=== PATIENT | male | born 1990 | race Hispanic/Latino ===

== ENCOUNTER 2017-01-27 07:58 | Emergency (ER) | payer OTHER ==
[2017-01-27 08:02] VITALS: BP 136/90; PULSE 87; TEMP 97; O2SAT 98
[2017-01-27 08:03] VITALS: BMI 29.4
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
--- NOTE | 2017-01-27 09:53 | CT ---
PROCEDURE: CT Cervical Spine without contrast HISTORY: Neck pain COMPARISON: None available. TECHNIQUE: Axial computed tomography images were obtained of the cervical spine without the use of intravenous contrast. Coronal and sagittal reformatted images were created and reviewed. Radiation dose: Total exam DLP = 475.94 mGy-cm. This CT exam was performed using one or more of the following dose reduction techniques: Automated exposure control, adjustment of the mA and/or kV according to patient size, and/or use of iterative reconstruction technique. FINDINGS: VERTEBRAE: Vertebral bodies maintained in height. Normal alignment maintained. The atlantoaxial articulation and odontoid process are intact.No fracture. Normal alignment. No destructive bony lesion. DISCS/SPINAL CANAL/NEURAL FORAMINA: No significant The intervertebral disc spaces are maintained in height. There is a midline disc herniation at C5-6. This results in central spinal stenosis at C5-6. The A-P diameter of the central canal at C5-6 is 7 mm, in the midline. There is small midline disc herniation at C6-7. There is no resulting central spinal or neural foraminal stenosis. No other disc bulge or herniation is appreciated elsewhere. PARASPINAL SOFT TISSUES: Unremarkable. OTHER FINDINGS: None. IMPRESSION: No fracture/dislocation. Midline disc herniation C5-6 and C6-7. Central spinal stenosis at C5-6.
== END 2017-01-27 10:36 | disposition home or self-care (01) ==
LOC: H.ER 07:58
DX: M25.521 Pain in right elbow (principal); M25.571 Pain in right ankle and joints of right foot; S50.311A Abrasion of right elbow, initial encounter; E11.9 Type 2 diabetes mellitus without complications; V13.4XXA Pedal cycle driver injured in collision with car, pick-up truck or van in traffic accident, initial encounter; Y93.55 Activity, bike riding

== ENCOUNTER 2017-04-25 11:16 | Inpatient (IN) | payer OTHER ==
[2017-04-25 11:18] VITALS: BMI 29.4
[2017-04-25] MEDS ORDERED: Insulin Regular 100 units/ml IVP ONE (12:16)
[2017-04-25] MEDS ORDERED: Sodium Chloride 0.9% 1,000 ML IV STA ×3 (12:16→13:54)
[2017-04-25 13:22] LABS: BASO # 0.3 K/uL (0.0-0.2); HEMOGLOBIN 17.8 g/dL (12.0-18.0); LYMPH # 1.2 K/uL (1.0-4.3); LYMPH % 3.7 % (20.0-40.0); MEAN CELL VOLUME 88.7 fl (80.0-94.0); MEAN CORPUSCULAR HGB CONC 32.8 g/dL (33.0-37.0); MEAN PLATELET VOLUME 9.3 fl (7.2-11.7); MONO # 1.6 K/uL (0.0-0.8); MONO % 4.7 % (0.0-10.0); NEUT # 30.2 K/uL (1.8-7.0); NEUT % 90.6 % (50.0-75.0); NRBC % 0.1 % (0.0-0.0); PLATELET COUNT 388 K/uL (130-400); RBC 6.12 Mil/uL (4.40-5.90); RED CELL DISTRIBUTION WIDTH 13.1 % (11.5-14.5); WHITE BLOOD COUNT 33.4 K/uL (4.8-10.8)
[2017-04-25] MEDS ORDERED: Insulin Regular 100 units/ml ONE (13:25)
[2017-04-25 13:32] LABS: SQUAMOUS EPITHIAL < 1 /hpf (0-5); URINE BILIRUBIN NEGATIVE (NEGATIVE); URINE BLOOD NEGATIVE (NEGATIVE); URINE CLARITY CLEAR (Clear); URINE COLOR YELLOW (YELLOW); URINE GLUCOSE (UA) >=500 mg/dL (Normal); URINE HYALINE CAST 0-2 /hpf (0-2); URINE LEUKOCYTE ESTERASE NEG Leu/uL (Negative); URINE NITRATE NEGATIVE (NEGATIVE); URINE PROTEIN 100 mg/dL (NEGATIVE); URINE UROBILINOGEN 0.2-1.0 mg/dL (0.2-1.0)
[2017-04-25 13:34] LABS: VENOUS BLOOD GAS BASE EXCESS -24.7 mmol/L (0.0-2.0); VENOUS BLOOD GAS PCO2 29 mmHg (40-60); VENOUS BLOOD GAS PO2 45 mm/Hg (30-55); VENOUS BLOOD PH 6.96 (7.32-7.43)
[2017-04-25] MEDS ORDERED: Dextrose 50% SYRINGE Inj (50 ml) IV PRN ×2 (13:40→18:26)
[2017-04-25] MEDS ORDERED: Glucagon Recombinant 1 mg Inj IM PRN ×2 (13:40→18:26)
--- NOTE | 2017-04-25 14:02 | ED PDOC ---
HPI: Abdomen Time Seen by Provider: 04/25/17 12:15 Chief Complaint (Nursing): High Blood Sugar Chief Complaint (Provider): Vomiting History Per: Patient History/Exam Limitations: no limitations Onset/Duration Of Symptoms: Days (x2) Current Symptoms Are (Timing): Still Present Associated Symptoms: Nausea, Vomiting Additional Complaint(s): Leno Beaver is a 26 year old male with a history of insulin-dependent diabetes mellitus (with insulin pump), who presents to the emergency department complaining of vomiting since last night, which was persisted today. Patient also developed polyuria, generalized weakness, dizziness, and headache today. States his blood sugar is usually between 250-300 at home. Patient reports his pump dispensed 8.4 units of insulin 1 hour prior to arrival. Currently complains of feeling nauseous. Denies ever being in DKA in the past. PMD: Dr. Maher Past Medical History Reviewed: Historical Data, Nursing Documentation, Vital Signs Vital Signs: Last Vital Signs Temp 97.9 F 04/29/17 08:00 Pulse 72 04/29/17 08:00 Resp 20 04/29/17 08:00 BP 125/73 04/29/17 08:00 Pulse Ox 98 04/29/17 08:00 - Medical History PMH: Anxiety, Asthma, Depression, Diabetes (insulin dependent) - Surgical History Surgical History: No Surg Hx - Family History Family History: States: Unknown Family Hx - Home Medications Home Medications: Ambulatory Orders Medication Instructions Recorded Albuterol HFA [Ventolin HFA 90 2 puff IH Q4H PRN 04/25/17 mcg/actuation (8 g)] Cetirizine HCl 20 mg PO DAILY 04/25/17 Citalopram Hydrobromide [Celexa] 20 mg PO DAILY 04/25/17 Insulin Aspart, Recombinant 1.85 - 1.9 unit SC ASDIR 04/25/17 [Novolog] Lisdexamfetamine Dimesylate 40 mg PO DAILY 04/25/17 [Vyvanse] buPROPion XL [Wellbutrin XL] 300 mg PO DAILY 04/25/17 - Allergies Allergies/Adverse Reactions: Allergies Allergy/AdvReac Type Severity Reaction Status Date / Time No Known Allergies Allergy Verified 01/27/17 08:21 Review of Systems ROS Statement: Except As Marked, All Systems Reviewed And Found Negative Constitutional: Positive for: Weakness (generalized). Negative for: Fever Gastrointestinal: Positive for: Nausea, Vomiting, Abdominal Pain (crampy). Negative for: Diarrhea Neurological: Positive for: Headache, Dizziness Physical Exam - Reviewed Nursing Documentation Reviewed: Yes Vital Signs Reviewed: Yes - Physical Exam Appears: Positive for: Uncomfortable (and dehydrated appearing) Head Exam: Positive for: ATRAUMATIC, NORMOCEPHALIC Skin: Positive for: Normal Color, Warm, Dry Eye Exam: Positive for: EOMI, Normal appearance, PERRL Neck: Positive for: Normal, Painless ROM Cardiovascular/Chest: Positive for: Regular Rate, Rhythm. Negative for: Murmur Respiratory: Positive for: Normal Breath Sounds. Negative for: Accessory Muscle Use, Respiratory Distress Gastrointestinal/Abdominal: Positive for: Soft, Other (pump located at left lower abdomen). Negative for: Tenderness Back: Positive for: Normal Inspection. Negative for: Vertebral Tenderness Extremity: Positive for: Normal ROM. Negative for: Pedal Edema, Deformity Neurologic/Psych: Positive for: Alert, Oriented - Laboratory Results Result Diagrams: 04/29/17 06:30 04/29/17 06:30 - ECG O2 Sat by Pulse Oximetry: 95 (RA) Pulse Ox Interpretation: Normal - Radiology X-Ray: Interpreted by Me, Viewed By Me X-Ray Interpretation: No Acute Disease - Critical Care Total Time (In Min): 35 Comments: pt required frequent bedside attention due to DKA while on insulin pump, requiring insulin drip and ICU care. Medical Decision Making Medical Decision Making: Time: 12:15 Initial Plan: --EKG --VBG --CMP --Troponin I --CBC w/ differential --Accucheck --Chest x-ray --Zofran 4 mg IV --IV fluids --Will discontinue pump, start patient on 4 units Insulin IVP --Urinalysis --Reevaluation Labs reviewed, revealing ketones in urine, WBC of 33, and elevated anion gap. Reviewed labs, +hyperglycemia w/ elevated AG, leukocytosis and evidence profound dehydration. Insulin drip initiated Cultures obtained and rocephin initiated for broad spectrum coverage. Unclear etiology of DKA as states insulin pump was functional. Continued to deny abdominal pain, cough, headache/neck pain or skin changes/ lesions/rash. Insulin pump site clean/no erythema. Time: 14:[address] Chapman, Sharepoint Manager on-call, and Dr. Lloyd, Medicine on-call. Patient will be admitted inpatient to intensive care for DKA Scribe Attestation: Documented by Anika Boateng, acting as a scribe for Giuliano Jimenez III, DO Provider Scribe Attestation: All medical record entries made by the Scribe were at my direction and personally dictated by me. I have reviewed the chart and agree that the record accurately reflects my personal performance of the history, physical exam, medical decision making, and the department course for this patient. I have also personally directed, reviewed, and agree with the discharge instructions and disposition Disposition - Clinical Impression Clinical Impression: DKA (diabetic ketoacidoses) - Patient ED Disposition Is Patient to be Admitted: Yes Discussed With DrStevenson: Srinath Lloyd Doctor Will See Patient In The: Hospital Counseled Patient/Family Regarding: Studies Performed - Disposition Disposition Time: 14:00 Condition: STABLE - Pt Status Changed To: Hospital Disposition Of: Inpatient - Admit Certification Admit to Inpatient:: After my assessment, the patient will require hospitalization for at least two midnights. This is because of the severity of symptoms shown, intensity of services needed, and/or the medical risk in this patient being treated as an outpatient. - POA Present On Arrival: Poor Glycemic Control
[2017-04-25 14:05] LABS: ALB/GLOB RATIO 1.4 (1.0-2.1); ALBUMIN 5.5 g/dL (3.5-5.0); ALT/SGPT 44 U/L (21-72); AST/SGOT 41 U/L (17-59); BLOOD UREA NITROGEN 24 mg/dl (9-20); GFR AFRICAN-AMERICAN > 60; GFR NON-AFRICAN AMERICAN > 60
--- NOTE | 2017-04-25 14:32 | RAD ---
HISTORY: Weakness. COMPARISON: 01/27/2017 FINDINGS: LUNGS: No active pulmonary disease. PLEURA: No significant pleural effusion identified, no pneumothorax apparent. CARDIOVASCULAR: Normal. OSSEOUS STRUCTURES: No significant abnormalities. VISUALIZED UPPER ABDOMEN: Normal. OTHER FINDINGS: None. IMPRESSION: No active disease. No significant interval change compared to the prior examination(s).
--- NOTE | 2017-04-25 14:57 | CP.CCUPN ---
CCU Subjective - Physician Review Subjective (Free Text): 04/25/17 18:19 The patient was Seen/interviewed and examined by me at the bedside during ICU round, Medical records reviewed and Management issues were discussed and formulated with the house staff. Events reviewed 26 Years old Male with PMHx of Anxiety, Asthma, Depression and insulin dependent Diabetes (on insulin pump) Who presented to the Emergency department with complaint of persisted nausea and vomiting since last night. Patient also developed polyuria, generalized weakness, dizziness, and headache today. In the ER he was found to be in DKA, BG of 334, elevated Lactate/Anion kalyani, Bicard <5, Pt States the he never being in DKA in the past. Pt States his blood sugar is usually between 250-300 at home. Labs revealed Leucocytosis, and in light of DKA and elevated Lactate, Blood C/S sent and he was started on IV Ceftriaxone CCU Objective - Vital Signs / Intake & Output Vital Signs (Last 4 hours): Vital Signs Temp Pulse Resp BP Pulse Ox 04/25/17 14:12 95 04/25/17 11:35 98.2 F 102 H 18 143/83 95 Intake and Output (Last 8hrs): Intake & Output 04/24/17 04/25/17 04/25/17 22:59 06:59 14:59 Weight 205 lb - Physical Exam Head: Positive for: Atraumatic, Normocephalic. Negative for: Tenderness, Contusion Pupils: Positive for: PERRL. Negative for: Sluggish, Non-Reactive Extroacular Muscles: Positive for: EOMI. Negative for: Gaze Palsy Conjunctiva: Positive for: Normal. Negative for: Injected, Icteric Ears: Positive for: Normal Mouth: Positive for: Moist Mucous Membranes Nose (Internal): Positive for: Normal Inspection Neck: Positive for: Normal Range of Motion, Trachea Midline. Negative for: Meningeal Signs, MIDLINE TENDERNESS, Paraspinal Tenderness, JVD, Lymphadenopathy , Bruit, Other Respiratory/Chest: Positive for: Clear to Auscultation, Good Air Exchange. Negative for: Respiratory Distress, Accessory Muscle Use, Wheezes, Decreased Breath Sounds, Rales, Retracting, Rhonchi Cardiovascular: Positive for: Regular Rate and Rhythm, Normal S1, S2, Peripheal Pulses Present, Tachycardic. Negative for: Murmurs, Irregular Rhythm, Gallop Abdomen: Positive for: Normal Bowel Sounds. Negative for: Tenderness, Distention, Peritoneal Signs, Rebound, Guarding Upper Extremity: Positive for: Normal Inspection, NORMAL PULSES, Capillary Refill < 2s. Negative for: Cyanosis, Edema Lower Extremity: Positive for: Normal Inspection, NORMAL PULSES, Capillary Refill < 2 s. Negative for: Edema, CALF TENDERNESS Neurological: Positive for: GCS=15, CN II-XII Intact, Speech Normal, Motor Func Grossly Intact, Normal Sensory Function Psychiatric: Positive for: Alert, Oriented x 3, Normal Insight, Normal Concentration - Medications Active Medications: Active Medications Generic Name Dose Route Start Last Admin Trade Name Freq PRN Reason Stop Dose Admin Dextrose 0 ml 04/25/17 13:40 Dextrose 50% Inj IV STAT PRN Hypoglycemia Protocol Protocol Dextrose 0 gm 04/25/17 13:40 Glutose 15 PO ONCE PRN Hypoglycemia Protocol Protocol Glucagon 0 mg 04/25/17 13:40 Glucagen Diagnostic Kit IM STAT PRN Hypoglycemia Protocol Protocol Insulin Human Regular 100 101 mls @ 6.06 mls/hr 04/25/17 13:45 units/ Sodium Chloride IV .[id number] AVELINA Protocol 6 UNITS/HR Sodium Chloride 1,000 mls @ 250 mls/hr 04/25/17 13:54 Sodium Chloride 0.9% IV 04/25/17 17:53 .Q4H STA - Patient Studies Lab Studies: Lab Studies 04/25/17 04/25/17 04/25/17 Range/Units 14:04 13:22 13:15 WBC (4.8-10.8) K/uL RBC (4.40-5.90) Mil/uL Hgb (12.0-18.0) g/dL Hct (35.0-51.0) % MCV (80.0-94.0) fl MCH (27.0-31.0) pg MCHC (33.0-37.0) g/dL RDW (11.5-14.5) % Plt Count (130-400) K/uL MPV (7.2-11.7) fl Neut % (Auto) (50.0-75.0) % Lymph % (Auto) (20.0-40.0) % [place] % (Auto) (0.0-10.0) % Eos % (Auto) (0.0-4.0) % Baso % (Auto) (0.0-2.0) % Neut # (1.8-7.0) K/uL Lymph # (1.0-4.3) K/uL [place] # (0.0-0.8) K/uL Eos # (0.0-0.7) K/uL Baso # (0.0-0.2) K/uL pO2 45 (30-55) mm/Hg VBG pH 6.96 L* (7.32-7.43) VBG pCO2 29 L (40-60) mmHg VBG HCO3 4.9 mmol/L VBG Total CO2 7.4 L (22-28) mmol/L VBG O2 Sat (Calc) 81.1 H (40-65) % VBG Base Excess -24.7 L (0.0-2.0) mmol/L VBG Potassium 6.2 H* (3.6-5.2) mmol/L A-a O2 Difference 68.0 mm/Hg Glucose 356 H (75-110) mg/dL Lactate 3.5 H (0.7-2.1) mmol/L FiO2 21.0 % Crit Value Called To Dr cliff pretty Crit Value Called By 15 Crit Value Read Back Y Blood Gas Notified Time 1333 Sodium 135.0 (132-148) mmol/l Potassium (3.6-5.0) MMOL/L Chloride 97.0 L (98-107) mmol/L Carbon Dioxide (22-30) mmol/L Anion Gap (10-20) BUN (9-20) mg/dl Creatinine (0.8-1.5) mg/dl Est GFR ( Amer) Est GFR (Non-Af Amer) POC Glucose (mg/dL) 247 H (65-110) mg/dL Random Glucose (75-110) mg/dL Calcium (8.4-10.2) mg/dL Total Bilirubin (0.2-1.3) mg/dl AST (17-59) U/L ALT (21-72) U/L Alkaline Phosphatase (38-126) U/L Troponin I (0.00-0.120) ng/mL Total Protein (6.3-8.2) G/DL Albumin (3.5-5.0) g/dL Globulin (2.2-3.9) gm/dL Albumin/Globulin Ratio (1.0-2.1) Venous Blood Potassium 6.2 H* (3.6-5.2) mmol/L Urine Color Yellow (YELLOW) Urine Clarity Clear (Clear) Urine pH 5.0 (5.0-8.0) Ur Specific [place] 1.023 (1.003-1.030) Urine Protein 100 (NEGATIVE) mg/dL Urine Glucose (UA) >=500 (Normal) mg/dL Urine Ketones 80 (NEGATIVE) mg/dL Urine Blood Negative (NEGATIVE) Urine Nitrate Negative (NEGATIVE) Urine Bilirubin Negative (NEGATIVE) Urine Urobilinogen 0.2-1.0 (0.2-1.0) mg/dL Ur Leukocyte Esterase Neg (Negative) Ray/uL Urine RBC (Auto) 3 (0-3) /hpf Urine Microscopic WBC < 1 (0-5) /hpf Ur Squamous Epith Cells < 1 (0-5) /hpf Hyaline Casts 0-2 (0-2) /hpf 04/25/17 04/25/17 Range/Units 13:10 13:10 WBC 33.4 H (4.8-10.8) K/uL RBC 6.12 H (4.40-5.90) Mil/uL Hgb 17.8 (12.0-18.0) g/dL Hct 54.2 H (35.0-51.0) % MCV 88.7 (80.0-94.0) fl MCH 29.0 (27.0-31.0) pg MCHC 32.8 L (33.0-37.0) g/dL RDW 13.1 (11.5-14.5) % Plt Count 388 (130-400) K/uL MPV 9.3 (7.2-11.7) fl Neut % (Auto) 90.6 H (50.0-75.0) % Lymph % (Auto) 3.7 L (20.0-40.0) % [place] % (Auto) 4.7 (0.0-10.0) % Eos % (Auto) 0.0 (0.0-4.0) % Baso % (Auto) 1.0 (0.0-2.0) % Neut # 30.2 H (1.8-7.0) K/uL Lymph # 1.2 (1.0-4.3) K/uL [place] # 1.6 H (0.0-0.8) K/uL Eos # 0.0 (0.0-0.7) K/uL Baso # 0.3 H (0.0-0.2) K/uL pO2 (30-55) mm/Hg VBG pH (7.32-7.43) VBG pCO2 (40-60) mmHg VBG HCO3 mmol/L VBG Total CO2 (22-28) mmol/L VBG O2 Sat (Calc) (40-65) % VBG Base Excess (0.0-2.0) mmol/L VBG Potassium (3.6-5.2) mmol/L A-a O2 Difference mm/Hg Glucose (75-110) mg/dL Lactate (0.7-2.1) mmol/L FiO2 % Crit Value Called To Crit Value Called By Crit Value Read Back Blood Gas Notified Time Sodium 139 (132-148) mmol/l Potassium 6.3 H* (3.6-5.0) MMOL/L Chloride 102 (98-107) mmol/L Carbon Dioxide < 5 L* (22-30) mmol/L Anion Gap 38 H (10-20) BUN 24 H (9-20) mg/dl Creatinine 1.2 (0.8-1.5) mg/dl Est GFR ( Amer) > 60 Est GFR (Non-Af Amer) > 60 POC Glucose (mg/dL) (65-110) mg/dL Random Glucose 334 H (75-110) mg/dL Calcium 10.0 (8.4-10.2) mg/dL Total Bilirubin 1.0 (0.2-1.3) mg/dl AST 41 (17-59) U/L ALT 44 (21-72) U/L Alkaline Phosphatase 192 H (38-126) U/L Troponin I 0.0180 (0.00-0.120) ng/mL Total Protein 9.4 H (6.3-8.2) G/DL Albumin 5.5 H (3.5-5.0) g/dL Globulin 3.8 (2.2-3.9) gm/dL Albumin/Globulin Ratio 1.4 (1.0-2.1) Venous Blood Potassium (3.6-5.2) mmol/L Urine Color (YELLOW) Urine Clarity (Clear) Urine pH (5.0-8.0) Ur Specific [place] (1.003-1.030) Urine Protein (NEGATIVE) mg/dL Urine Glucose (UA) (Normal) mg/dL Urine Ketones (NEGATIVE) mg/dL Urine Blood (NEGATIVE) Urine Nitrate (NEGATIVE) Urine Bilirubin (NEGATIVE) Urine Urobilinogen (0.2-1.0) mg/dL Ur Leukocyte Esterase (Negative) Ray/uL Urine RBC (Auto) (0-3) /hpf Urine Microscopic WBC (0-5) /hpf Ur Squamous Epith Cells (0-5) /hpf Hyaline Casts (0-2) /hpf Laboratory Results - last 24 hr 04/25/17 04/25/17 04/25/17 13:10 13:10 13:15 WBC 33.4 H RBC 6.12 H Hgb 17.8 Hct 54.2 H MCV 88.7 MCH 29.0 MCHC 32.8 L RDW 13.1 Plt Count 388 MPV 9.3 Neut % (Auto) 90.6 H Lymph % (Auto) 3.7 L [place] % (Auto) 4.7 Eos % (Auto) 0.0 Baso % (Auto) 1.0 Neut # 30.2 H Lymph # 1.2 [place] # 1.6 H Eos # 0.0 Baso # 0.3 H pO2 VBG pH VBG pCO2 VBG HCO3 VBG Total CO2 VBG O2 Sat (Calc) VBG Base Excess VBG Potassium A-a O2 Difference Glucose Lactate FiO2 Crit Value Called To Crit Value Called By Crit Value Read Back Blood Gas Notified Time Sodium 139 Potassium 6.3 H* Chloride 102 Carbon Dioxide < 5 L* Anion Gap 38 H BUN 24 H Creatinine 1.2 Est GFR ( Amer) > 60 Est GFR (Non-Af Amer) > 60 POC Glucose (mg/dL) Random Glucose 334 H Calcium 10.0 Total Bilirubin 1.0 AST 41 ALT 44 Alkaline Phosphatase 192 H Troponin I 0.0180 Total Protein 9.4 H Albumin 5.5 H Globulin 3.8 Albumin/Globulin Ratio 1.4 Venous Blood Potassium Urine Color Yellow Urine Clarity Clear Urine pH 5.0 Ur Specific [place] 1.023 Urine Protein 100 Urine Glucose (UA) >=500 Urine Ketones 80 Urine Blood Negative Urine Nitrate Negative Urine Bilirubin Negative Urine Urobilinogen 0.2-1.0 Ur Leukocyte Esterase Neg Urine RBC (Auto) 3 Urine Microscopic WBC < 1 Ur Squamous Epith Cells < 1 Hyaline Casts 0-2 04/25/17 04/25/17 13:22 14:04 WBC RBC Hgb Hct MCV MCH MCHC RDW Plt Count MPV Neut % (Auto) Lymph % (Auto) [place] % (Auto) Eos % (Auto) Baso % (Auto) Neut # Lymph # [place] # Eos # Baso # pO2 45 VBG pH 6.96 L* VBG pCO2 29 L VBG HCO3 4.9 VBG Total CO2 7.4 L VBG O2 Sat (Calc) 81.1 H VBG Base Excess -24.7 L VBG Potassium 6.2 H* A-a O2 Difference 68.0 Glucose 356 H Lactate 3.5 H FiO2 21.0 Crit Value Called To Dr cliff pretty Crit Value Called By 15 Crit Value Read Back Y Blood Gas Notified Time 1333 Sodium 135.0 Potassium Chloride 97.0 L Carbon Dioxide Anion Gap BUN Creatinine Est GFR ( Amer) Est GFR (Non-Af Amer) POC Glucose (mg/dL) 247 H Random Glucose Calcium Total Bilirubin AST ALT Alkaline Phosphatase Troponin I Total Protein Albumin Globulin Albumin/Globulin Ratio Venous Blood Potassium 6.2 H* Urine Color Urine Clarity Urine pH Ur Specific [place] Urine Protein Urine Glucose (UA) Urine Ketones Urine Blood Urine Nitrate Urine Bilirubin Urine Urobilinogen Ur Leukocyte Esterase Urine RBC (Auto) Urine Microscopic WBC Ur Squamous Epith Cells Hyaline Casts EKG/Cardiology Studies: Cardiology / EKG Studies 04/25/17 12:16 ELECTROCARDIOGRAM Stat Comment: Mode Of Transportation: Reason For Exam: vomit Fingerstick Blood Sugar Results: 247 Review of Systems - Cardiovascular Cardiovascular: absent: As Per HPI, Acrocyanosis, Chest Pain, Chest Pain at Rest , Chest Pain with Activity, Claudication, Diaphoresis, Dyspnea, Dyspnea on Exertion, Edema, Irregular Heart Rhythm, Pain Radiating to Arm/Neck/Jaw, Leg Edema, Leg Ulcers, Lightheadedness, Orthopnea, Palpitations, Paroxysmal Nocturnal Dyspnea, Pedal Edema, Radiating Pain, Rapid Heart Rate, Slow Heart Rate, Syncope, Other, UNREMARKABLE - Respiratory Respiratory: absent: As Per HPI, Cough, Dyspnea, Hemoptysis, Dyspnea on Exertion , Wheezing, Snoring, Stridor, Pain on Inspiration, Chest Congestion, Excessive Mucous Production, Change in Mucous Color, Pain with Coughing, Other, UNREMARKABLE - Gastrointestinal Gastrointestinal: Abdominal Pain, Heartburn, Nausea, Vomiting. absent: Coffee Ground Emesis, Hematochezia, Melena Critical Care Progress Note - Extremities/Vascular Does the Patient have a Central Venous Catheter?: No Does the Patient need a Central Venous Catheter?: No Does the Patient have a Green Catheter?: No Does the Patient need a Green Catheter?: No Assessment/Plan (1) DKA (diabetic ketoacidoses) Current Visit: Yes Status: Acute (2) DKA, type 1 Current Visit: Yes Status: Acute (3) Elevated lactic acid level Current Visit: Yes Status: Acute (4) Dehydration Current Visit: Yes Status: Acute - Assessment and Plan (Free Text) Assessment: Assessment & Recommendations: DKA, hyperglycemic Dehydration, hypovolemia R/O Sepsis, Less likely participated by infection, pt afebrile. High AG metabolic acidosis Hyperkalemia Admitted to ICU for hemodynamic and Respiratory monitoring, He has an AG of 38 Aggressive IV fluid replacement with Isotonic saline S/P 1L 0.9% NS in ER Will change to D5NS or D51/2 NS when BG < 250 mg /dL Cont. insulin drip at 3U /U till AG closed [place] check Q 1H while on insulin Basic metabolic panel and VBG Q 4H Will replete if K < 3.2 (will add 20-30 mEq to each liter of fluid) Repeate Labs including BMP, Ca, Po4, Mg, ABG/VBG Check urine tox Restart Home medications No indications for sodium bicarbonate therapy Monitor renal function and urine output GI/DVT PPX FULL CODE
[2017-04-25 15:48] LABS: BANDS 1 % (0-2); EOSINOPHIL 1 % (0-7); LYMPHOCYTE 2 % (20-50); MONOCYTE 5 % (0-10); NEUTROPHIL 91 % (42-75); PLATELET ESTIMATE NORMAL (NORMAL); TOTAL CELLS COUNTED 100
--- NOTE | 2017-04-25 18:22 | CARD ---
APPROVED REPORT EKG Measurement Heart [id number] <Conclusion> Normal sinus rhythm Normal ECG
[2017-04-25 20:03] LABS: VENOUS BLOOD GAS BASE EXCESS -23.6 mmol/L (0.0-2.0); VENOUS BLOOD GAS PCO2 20 mmHg (40-60); VENOUS BLOOD GAS PO2 46 mm/Hg (30-55); VENOUS BLOOD PH 7.04 (7.32-7.43)
[2017-04-25 20:40] LABS: ALB/GLOB RATIO 1.3 (1.0-2.1); ALBUMIN 4.7 g/dL (3.5-5.0); ALT/SGPT 44 U/L (21-72); AST/SGOT 25 U/L (17-59); BLOOD UREA NITROGEN 19 mg/dl (9-20); CALCIUM 9.1 mg/dL (8.4-10.2); GFR AFRICAN-AMERICAN > 60; GFR NON-AFRICAN AMERICAN > 60; MAGNESIUM 2.3 MG/DL (1.6-2.3)
[2017-04-25] MEDS: Dextrose 5%/0.9% NS 1,000 ML IV SCH (21:25)
[2017-04-26 02:43] LABS: BARBITURATES, UR NEGATIVE (NEGATIVE); BENZODIAZEPINES, UR NEGATIVE (NEGATIVE); OPIATES, UR NEGATIVE (NEGATIVE); PHENCYCLIDINE, UR NEGATIVE (NEGATIVE)
[2017-04-26] MEDS: Dextrose 5%/0.9% NS 1,000 ML IV SCH (03:25)
[2017-04-26 05:57] LABS: BASO % 0.1 % (0.0-2.0); HEMOGLOBIN 15.8 g/dL (12.0-18.0); LYMPH # 1.8 K/uL (1.0-4.3); LYMPH % 6.9 % (20.0-40.0); MEAN CELL VOLUME 88.6 fl (80.0-94.0); MEAN CORPUSCULAR HEMOGLOBIN 29.1 pg (27.0-31.0); MEAN CORPUSCULAR HGB CONC 32.9 g/dL (33.0-37.0); MEAN PLATELET VOLUME 8.9 fl (7.2-11.7); MONO # 2.1 K/uL (0.0-0.8); MONO % 7.9 % (0.0-10.0); NEUT # 22.5 K/uL (1.8-7.0); NEUT % 85.1 % (50.0-75.0); RBC 5.41 Mil/uL (4.40-5.90); RED CELL DISTRIBUTION WIDTH 13.2 % (11.5-14.5); WHITE BLOOD COUNT 26.4 K/uL (4.8-10.8)
[2017-04-26 06:24] LABS: ALB/GLOB RATIO 1.4 (1.0-2.1); ALBUMIN 4.5 g/dL (3.5-5.0); ALT/SGPT 36 U/L (21-72); AST/SGOT 19 U/L (17-59); BLOOD UREA NITROGEN 14 mg/dl (9-20); CALCIUM 8.9 mg/dL (8.4-10.2); GFR AFRICAN-AMERICAN > 60; GFR NON-AFRICAN AMERICAN > 60
[2017-04-26 06:52] LABS: VENOUS BLOOD GAS BASE EXCESS -19.5 mmol/L (0.0-2.0); VENOUS BLOOD GAS PCO2 23 mmHg (40-60); VENOUS BLOOD GAS PO2 50 mm/Hg (30-55); VENOUS BLOOD PH 7.14 (7.32-7.43)
[2017-04-26] MEDS ORDERED: Pneumococcal 23-Valent Vaccine IM ONE (07:28)
[2017-04-26 13:25] LABS: VENOUS BLOOD GAS PCO2 24 mmHg (40-60); VENOUS BLOOD GAS PO2 54 mm/Hg (30-55); VENOUS BLOOD PH 7.27 (7.32-7.43)
[2017-04-26 13:36] LABS: BLOOD UREA NITROGEN 12 mg/dl (9-20); CALCIUM 8.6 mg/dL (8.4-10.2); GFR AFRICAN-AMERICAN > 60; GFR NON-AFRICAN AMERICAN > 60; MAGNESIUM 2.2 MG/DL (1.6-2.3)
--- NOTE | 2017-04-26 16:06 | CP.CCUPN ---
CCU Subjective - Physician Review Subjective (Free Text): 04/26/17 15:55 The patient was Seen/interviewed and examined by me at the bedside during ICU round, Medical records reviewed and Management issues were discussed and formulated with the house staff. Events reviewed 26 Years old Male with PMHx of Anxiety, Asthma, Depression and insulin dependent Diabetes (on insulin pump) Who presented to the Emergency department yesterday with complaint of persisted ABD pain, nausea and vomiting Patient also developed polyuria, generalized weakness, dizziness, and headache In the ER he was found to be in DKA, BG of 334, elevated Lactate/Anion kalyani, Bicard <5, Pt States the he never being in DKA in the past and his blood sugar is usually between 250-300 at home. Labs revealed Leucocytosis, and in light of DKA and elevated Lactate, Blood C/S sent and he was started on IV Ceftriaxone Patient received 2L 0.9% NS in ER, started to the ICU for further management of DKA This morning he feels well and is hemodynamically stable No Vasopressors Remains on Insulin drip for DKA at 2 units/H Also on D5 1/2 NS at 150 ml/H Pt comfortable, NAD Pt AAO x3. Denies any chest pain, SOB or Palpitations Afebrile, NSR on the monitor Last 24H I&O 1650/2100 This morning labs revealed Leucocytosis trending down 33->26, Still in DKA, elevated Lactate/Anion kalyani, Bicard <5, K/Po4/Mg normal and stable renal function CCU Objective - Vital Signs / Intake & Output Vital Signs (Last 4 hours): Vital Signs Temp Pulse Resp BP Pulse Ox 04/26/17 13:00 93 H 16 124/77 100 04/26/17 12:00 99.1 F 103 H 20 120/65 100 Intake and Output (Last 8hrs): Intake & Output 04/26/17 04/26/17 04/26/17 06:59 14:59 22:59 Intake Total 1236 1645 Output Total 1900 2100 Balance -664 -455 Intake: IV 1236 1186 Intake, Piggyback 9 Oral 450 Output: Urine 1900 2100 Urine, Voided 1900 2100 - Physical Exam Head: Positive for: Atraumatic, Normocephalic. Negative for: Tenderness, Contusion Pupils: Positive for: PERRL. Negative for: Sluggish, Non-Reactive Extroacular Muscles: Positive for: EOMI. Negative for: Gaze Palsy Conjunctiva: Positive for: Normal. Negative for: Injected, Icteric Ears: Positive for: Normal Mouth: Positive for: Moist Mucous Membranes Nose (Internal): Positive for: Normal Inspection Neck: Positive for: Normal Range of Motion, Trachea Midline. Negative for: Meningeal Signs, MIDLINE TENDERNESS, Paraspinal Tenderness, JVD, Lymphadenopathy , Bruit, Other Respiratory/Chest: Positive for: Clear to Auscultation, Good Air Exchange. Negative for: Respiratory Distress, Accessory Muscle Use, Wheezes, Decreased Breath Sounds, Rales, Retracting, Rhonchi Cardiovascular: Positive for: Regular Rate and Rhythm, Normal S1, S2, Peripheal Pulses Present, Tachycardic. Negative for: Murmurs, Irregular Rhythm, Gallop Abdomen: Positive for: Normal Bowel Sounds. Negative for: Tenderness, Distention, Peritoneal Signs, Rebound, Guarding Upper Extremity: Positive for: Normal Inspection, NORMAL PULSES, Capillary Refill < 2s. Negative for: Cyanosis, Edema Lower Extremity: Positive for: Normal Inspection, NORMAL PULSES, Capillary Refill < 2 s. Negative for: Edema, CALF TENDERNESS Neurological: Positive for: GCS=15, CN II-XII Intact, Speech Normal, Motor Func Grossly Intact, Normal Sensory Function Psychiatric: Positive for: Alert, Oriented x 3, Normal Insight, Normal Concentration - Medications Active Medications: Active Medications Generic Name Dose Route Start Last Admin Trade Name Freq PRN Reason Stop Dose Admin Acetaminophen 650 mg 04/25/17 20:15 04/25/17 21:21 Tylenol 325mg Tab PO 650 mg Q6 PRN Administration Other Dextrose 0 ml 04/25/17 13:40 Dextrose 50% Inj IV STAT PRN Hypoglycemia Protocol Protocol Dextrose 0 gm 04/25/17 13:40 Glutose 15 PO ONCE PRN Hypoglycemia Protocol Protocol Dextrose 0 ml 04/25/17 18:26 Dextrose 50% Inj IV STAT PRN Hypoglycemia Protocol Protocol Dextrose 0 gm 04/25/17 18:26 Glutose 15 PO ONCE PRN Hypoglycemia Protocol Protocol Glucagon 0 mg 04/25/17 13:40 Glucagen Diagnostic Kit IM STAT PRN Hypoglycemia Protocol Protocol Glucagon 0 mg 04/25/17 18:26 Glucagen Diagnostic Kit IM STAT PRN Hypoglycemia Protocol Protocol Insulin Human Regular 100 101 mls @ 6.06 mls/hr 04/25/17 13:45 04/26/17 13:15 units/ Sodium Chloride IV 3 units/hr .[id number] AVELINA 3.03 mls/hr Protocol Titration 6 UNITS/HR Dextrose/Sodium Chloride 1,000 mls @ 150 mls/hr 04/26/17 10:30 04/26/17 10:30 Dextrose 5%-0.9% Ns 500 Ml IV 04/26/17 20:14 150 mls/hr .[id number] AVELINA Administration Ondansetron HCl 4 mg 04/25/17 19:09 Zofran Inj IVP Q4 PRN Nausea/Vomiting Tramadol HCl 50 mg 04/25/17 20:17 Ultram PO Q6 PRN Pain, severe (8-10) - Patient Studies Lab Studies: Microbiology Studies 04/25/17 15:26 Blood Culture - Preliminary Blood-Venous NO GROWTH AFTER 24 HOURS Lab Studies 04/26/17 04/26/17 04/26/17 Range/Units 15:22 14:17 13:45 WBC (4.8-10.8) K/uL RBC (4.40-5.90) Mil/uL Hgb (12.0-18.0) g/dL Hct (35.0-51.0) % MCV (80.0-94.0) fl MCH (27.0-31.0) pg MCHC (33.0-37.0) g/dL RDW (11.5-14.5) % Plt Count (130-400) K/uL MPV (7.2-11.7) fl Neut % (Auto) (50.0-75.0) % Lymph % (Auto) (20.0-40.0) % [place] % (Auto) (0.0-10.0) % Eos % (Auto) (0.0-4.0) % Baso % (Auto) (0.0-2.0) % Neut # (1.8-7.0) K/uL Lymph # (1.0-4.3) K/uL [place] # (0.0-0.8) K/uL Eos # (0.0-0.7) K/uL Baso # (0.0-0.2) K/uL pO2 (30-55) mm/Hg VBG pH (7.32-7.43) VBG pCO2 (40-60) mmHg VBG HCO3 mmol/L VBG Total CO2 (22-28) mmol/L VBG O2 Sat (Calc) (40-65) % VBG Base Excess (0.0-2.0) mmol/L VBG Potassium (3.6-5.2) mmol/L Glucose (75-110) mg/dL Lactate (0.7-2.1) mmol/L FiO2 % Blood Gas Comments Crit Value Called To Crit Value Read Back Blood Gas Notified Time Sodium (132-148) mmol/l Potassium (3.6-5.0) MMOL/L Chloride (98-107) mmol/L Carbon Dioxide (22-30) mmol/L Anion Gap (10-20) BUN (9-20) mg/dl Creatinine (0.8-1.5) mg/dl Est GFR ( Amer) Est GFR (Non-Af Amer) POC Glucose (mg/dL) 191 H 207 H 214 H (65-110) mg/dL Random Glucose (75-110) mg/dL Calcium (8.4-10.2) mg/dL Phosphorus (2.5-4.5) mg/dl Magnesium (1.6-2.3) MG/DL Total Bilirubin (0.2-1.3) mg/dl AST (17-59) U/L ALT (21-72) U/L Alkaline Phosphatase (38-126) U/L Total Protein (6.3-8.2) G/DL Albumin (3.5-5.0) g/dL Globulin (2.2-3.9) gm/dL Albumin/Globulin Ratio (1.0-2.1) Venous Blood Potassium (3.6-5.2) mmol/L Urine Opiates Screen (NEGATIVE) Urine Methadone Screen (NEGATIVE) Ur Barbiturates Screen (NEGATIVE) Ur Phencyclidine Scrn (NEGATIVE) Ur Amphetamines Screen (NEGATIVE) U Benzodiazepines Scrn (NEGATIVE) U Oth Cocaine Metabols (NEGATIVE) U Cannabinoids Screen (NEGATIVE) Influenza Typ A,B (EIA) (NEGATIVE) 04/26/17 04/26/17 04/26/17 Range/Units 13:12 13:12 12:30 WBC (4.8-10.8) K/uL RBC (4.40-5.90) Mil/uL Hgb (12.0-18.0) g/dL Hct (35.0-51.0) % MCV (80.0-94.0) fl MCH (27.0-31.0) pg MCHC (33.0-37.0) g/dL RDW (11.5-14.5) % Plt Count (130-400) K/uL MPV (7.2-11.7) fl Neut % (Auto) (50.0-75.0) % Lymph % (Auto) (20.0-40.0) % [place] % (Auto) (0.0-10.0) % Eos % (Auto) (0.0-4.0) % Baso % (Auto) (0.0-2.0) % Neut # (1.8-7.0) K/uL Lymph # (1.0-4.3) K/uL [place] # (0.0-0.8) K/uL Eos # (0.0-0.7) K/uL Baso # (0.0-0.2) K/uL pO2 54 (30-55) mm/Hg VBG pH 7.27 L (7.32-7.43) VBG pCO2 24 L (40-60) mmHg VBG HCO3 13.6 mmol/L VBG Total CO2 11.7 L (22-28) mmol/L VBG O2 Sat (Calc) 94.3 H (40-65) % VBG Base Excess -14.0 L (0.0-2.0) mmol/L VBG Potassium 4.5 (3.6-5.2) mmol/L Glucose 243 H (75-110) mg/dL Lactate 1.1 (0.7-2.1) mmol/L FiO2 21.0 % Blood Gas Comments Crit Value Called To Crit Value Read Back Blood Gas Notified Time Sodium 131.0 L 133 (132-148) mmol/l Potassium 4.1 (3.6-5.0) MMOL/L Chloride 100.0 106 (98-107) mmol/L Carbon Dioxide 10 L* D (22-30) mmol/L Anion Gap 21 H (10-20) BUN 12 (9-20) mg/dl Creatinine 0.8 (0.8-1.5) mg/dl Est GFR ( Amer) > 60 Est GFR (Non-Af Amer) > 60 POC Glucose (mg/dL) 216 H (65-110) mg/dL Random Glucose 233 H (75-110) mg/dL Calcium 8.6 (8.4-10.2) mg/dL Phosphorus 2.8 (2.5-4.5) mg/dl Magnesium 2.2 (1.6-2.3) MG/DL Total Bilirubin (0.2-1.3) mg/dl AST (17-59) U/L ALT (21-72) U/L Alkaline Phosphatase (38-126) U/L Total Protein (6.3-8.2) G/DL Albumin (3.5-5.0) g/dL Globulin (2.2-3.9) gm/dL Albumin/Globulin Ratio (1.0-2.1) Venous Blood Potassium 4.5 (3.6-5.2) mmol/L Urine Opiates Screen (NEGATIVE) Urine Methadone Screen (NEGATIVE) Ur Barbiturates Screen (NEGATIVE) Ur Phencyclidine Scrn (NEGATIVE) Ur Amphetamines Screen (NEGATIVE) U Benzodiazepines Scrn (NEGATIVE) U Oth Cocaine Metabols (NEGATIVE) U Cannabinoids Screen (NEGATIVE) Influenza Typ A,B (EIA) (NEGATIVE) 04/26/17 04/26/17 04/26/17 Range/Units 12:20 11:11 10:21 WBC (4.8-10.8) K/uL RBC (4.40-5.90) Mil/uL Hgb (12.0-18.0) g/dL Hct (35.0-51.0) % MCV (80.0-94.0) fl MCH (27.0-31.0) pg MCHC (33.0-37.0) g/dL RDW (11.5-14.5) % Plt Count (130-400) K/uL MPV (7.2-11.7) fl Neut % (Auto) (50.0-75.0) % Lymph % (Auto) (20.0-40.0) % [place] % (Auto) (0.0-10.0) % Eos % (Auto) (0.0-4.0) % Baso % (Auto) (0.0-2.0) % Neut # (1.8-7.0) K/uL Lymph # (1.0-4.3) K/uL [place] # (0.0-0.8) K/uL Eos # (0.0-0.7) K/uL Baso # (0.0-0.2) K/uL pO2 (30-55) mm/Hg VBG pH (7.32-7.43) VBG pCO2 (40-60) mmHg VBG HCO3 mmol/L VBG Total CO2 (22-28) mmol/L VBG O2 Sat (Calc) (40-65) % VBG Base Excess (0.0-2.0) mmol/L VBG Potassium (3.6-5.2) mmol/L Glucose (75-110) mg/dL Lactate (0.7-2.1) mmol/L FiO2 % Blood Gas Comments Crit Value Called To Crit Value Read Back Blood Gas Notified Time Sodium (132-148) mmol/l Potassium (3.6-5.0) MMOL/L Chloride (98-107) mmol/L Carbon Dioxide (22-30) mmol/L Anion Gap (10-20) BUN (9-20) mg/dl Creatinine (0.8-1.5) mg/dl Est GFR ( Amer) Est GFR (Non-Af Amer) POC Glucose (mg/dL) 264 H 219 H 196 H (65-110) mg/dL Random Glucose (75-110) mg/dL Calcium (8.4-10.2) mg/dL Phosphorus (2.5-4.5) mg/dl Magnesium (1.6-2.3) MG/DL Total Bilirubin (0.2-1.3) mg/dl AST (17-59) U/L ALT (21-72) U/L Alkaline Phosphatase (38-126) U/L Total Protein (6.3-8.2) G/DL Albumin (3.5-5.0) g/dL Globulin (2.2-3.9) gm/dL Albumin/Globulin Ratio (1.0-2.1) Venous Blood Potassium (3.6-5.2) mmol/L Urine Opiates Screen (NEGATIVE) Urine Methadone Screen (NEGATIVE) Ur Barbiturates Screen (NEGATIVE) Ur Phencyclidine Scrn (NEGATIVE) Ur Amphetamines Screen (NEGATIVE) U Benzodiazepines Scrn (NEGATIVE) U Oth Cocaine Metabols (NEGATIVE) U Cannabinoids Screen (NEGATIVE) Influenza Typ A,B (EIA) (NEGATIVE) 04/26/17 04/26/17 04/26/17 Range/Units 09:07 08:22 07:19 WBC (4.8-10.8) K/uL RBC (4.40-5.90) Mil/uL Hgb (12.0-18.0) g/dL Hct (35.0-51.0) % MCV (80.0-94.0) fl MCH (27.0-31.0) pg MCHC (33.0-37.0) g/dL RDW (11.5-14.5) % Plt Count (130-400) K/uL MPV (7.2-11.7) fl Neut % (Auto) (50.0-75.0) % Lymph % (Auto) (20.0-40.0) % [place] % (Auto) (0.0-10.0) % Eos % (Auto) (0.0-4.0) % Baso % (Auto) (0.0-2.0) % Neut # (1.8-7.0) K/uL Lymph # (1.0-4.3) K/uL [place] # (0.0-0.8) K/uL Eos # (0.0-0.7) K/uL Baso # (0.0-0.2) K/uL pO2 (30-55) mm/Hg VBG pH (7.32-7.43) VBG pCO2 (40-60) mmHg VBG HCO3 mmol/L VBG Total CO2 (22-28) mmol/L VBG O2 Sat (Calc) (40-65) % VBG Base Excess (0.0-2.0) mmol/L VBG Potassium (3.6-5.2) mmol/L Glucose (75-110) mg/dL Lactate (0.7-2.1) mmol/L FiO2 % Blood Gas Comments Crit Value Called To Crit Value Read Back Blood Gas Notified Time Sodium (132-148) mmol/l Potassium (3.6-5.0) MMOL/L Chloride (98-107) mmol/L Carbon Dioxide (22-30) mmol/L Anion Gap (10-20) BUN (9-20) mg/dl Creatinine (0.8-1.5) mg/dl Est GFR ( Amer) Est GFR (Non-Af Amer) POC Glucose (mg/dL) 201 H 179 H 184 H (65-110) mg/dL Random Glucose (75-110) mg/dL Calcium (8.4-10.2) mg/dL Phosphorus (2.5-4.5) mg/dl Magnesium (1.6-2.3) MG/DL Total Bilirubin (0.2-1.3) mg/dl AST (17-59) U/L ALT (21-72) U/L Alkaline Phosphatase (38-126) U/L Total Protein (6.3-8.2) G/DL Albumin (3.5-5.0) g/dL Globulin (2.2-3.9) gm/dL Albumin/Globulin Ratio (1.0-2.1) Venous Blood Potassium (3.6-5.2) mmol/L Urine Opiates Screen (NEGATIVE) Urine Methadone Screen (NEGATIVE) Ur Barbiturates Screen (NEGATIVE) Ur Phencyclidine Scrn (NEGATIVE) Ur Amphetamines Screen (NEGATIVE) U Benzodiazepines Scrn (NEGATIVE) U Oth Cocaine Metabols (NEGATIVE) U Cannabinoids Screen (NEGATIVE) Influenza Typ A,B (EIA) (NEGATIVE) 04/26/17 04/26/17 04/26/17 Range/Units 06:46 06:19 05:28 WBC (4.8-10.8) K/uL RBC (4.40-5.90) Mil/uL Hgb (12.0-18.0) g/dL Hct (35.0-51.0) % MCV (80.0-94.0) fl MCH (27.0-31.0) pg MCHC (33.0-37.0) g/dL RDW (11.5-14.5) % Plt Count (130-400) K/uL MPV (7.2-11.7) fl Neut % (Auto) (50.0-75.0) % Lymph % (Auto) (20.0-40.0) % [place] % (Auto) (0.0-10.0) % Eos % (Auto) (0.0-4.0) % Baso % (Auto) (0.0-2.0) % Neut # (1.8-7.0) K/uL Lymph # (1.0-4.3) K/uL [place] # (0.0-0.8) K/uL Eos # (0.0-0.7) K/uL Baso # (0.0-0.2) K/uL pO2 50 (30-55) mm/Hg VBG pH 7.14 L* (7.32-7.43) VBG pCO2 23 L (40-60) mmHg VBG HCO3 9.0 mmol/L VBG Total CO2 (22-28) mmol/L VBG O2 Sat (Calc) 90.0 H (40-65) % VBG Base Excess -19.5 L (0.0-2.0) mmol/L VBG Potassium (3.6-5.2) mmol/L Glucose (75-110) mg/dL Lactate (0.7-2.1) mmol/L FiO2 % Blood Gas Comments 333 Crit Value Called To Clover yates rn Crit Value Read Back Y Blood Gas Notified Time 650 Sodium (132-148) mmol/l Potassium (3.6-5.0) MMOL/L Chloride (98-107) mmol/L Carbon Dioxide (22-30) mmol/L Anion Gap (10-20) BUN (9-20) mg/dl Creatinine (0.8-1.5) mg/dl Est GFR ( Amer) Est GFR (Non-Af Amer) POC Glucose (mg/dL) 200 H 204 H (65-110) mg/dL Random Glucose (75-110) mg/dL Calcium (8.4-10.2) mg/dL Phosphorus (2.5-4.5) mg/dl Magnesium (1.6-2.3) MG/DL Total Bilirubin (0.2-1.3) mg/dl AST (17-59) U/L ALT (21-72) U/L Alkaline Phosphatase (38-126) U/L Total Protein (6.3-8.2) G/DL Albumin (3.5-5.0) g/dL Globulin (2.2-3.9) gm/dL Albumin/Globulin Ratio (1.0-2.1) Venous Blood Potassium (3.6-5.2) mmol/L Urine Opiates Screen (NEGATIVE) Urine Methadone Screen (NEGATIVE) Ur Barbiturates Screen (NEGATIVE) Ur Phencyclidine Scrn (NEGATIVE) Ur Amphetamines Screen (NEGATIVE) U Benzodiazepines Scrn (NEGATIVE) U Oth Cocaine Metabols (NEGATIVE) U Cannabinoids Screen (NEGATIVE) Influenza Typ A,B (EIA) (NEGATIVE) 04/26/17 04/26/17 04/26/17 Range/Units 04:50 04:50 04:07 WBC 26.4 H (4.8-10.8) K/uL RBC 5.41 (4.40-5.90) Mil/uL Hgb 15.8 D (12.0-18.0) g/dL Hct 47.9 (35.0-51.0) % MCV 88.6 (80.0-94.0) fl MCH 29.1 (27.0-31.0) pg MCHC 32.9 L (33.0-37.0) g/dL RDW 13.2 (11.5-14.5) % Plt Count 337 (130-400) K/uL MPV 8.9 (7.2-11.7) fl Neut % (Auto) 85.1 H (50.0-75.0) % Lymph % (Auto) 6.9 L (20.0-40.0) % [place] % (Auto) 7.9 (0.0-10.0) % Eos % (Auto) 0.0 (0.0-4.0) % Baso % (Auto) 0.1 (0.0-2.0) % Neut # 22.5 H (1.8-7.0) K/uL Lymph # 1.8 (1.0-4.3) K/uL [place] # 2.1 H (0.0-0.8) K/uL Eos # 0.0 (0.0-0.7) K/uL Baso # 0.0 (0.0-0.2) K/uL pO2 (30-55) mm/Hg VBG pH (7.32-7.43) VBG pCO2 (40-60) mmHg VBG HCO3 mmol/L VBG Total CO2 (22-28) mmol/L VBG O2 Sat (Calc) (40-65) % VBG Base Excess (0.0-2.0) mmol/L VBG Potassium (3.6-5.2) mmol/L Glucose (75-110) mg/dL Lactate (0.7-2.1) mmol/L FiO2 % Blood Gas Comments Crit Value Called To Crit Value Read Back Blood Gas Notified Time Sodium 133 (132-148) mmol/l Potassium 4.5 (3.6-5.0) MMOL/L Chloride 105 (98-107) mmol/L Carbon Dioxide 5 L* (22-30) mmol/L Anion Gap 28 H (10-20) BUN 14 (9-20) mg/dl Creatinine 1.0 (0.8-1.5) mg/dl Est GFR ( Amer) > 60 Est GFR (Non-Af Amer) > 60 POC Glucose (mg/dL) 182 H (65-110) mg/dL Random Glucose 210 H (75-110) mg/dL Calcium 8.9 (8.4-10.2) mg/dL Phosphorus (2.5-4.5) mg/dl Magnesium (1.6-2.3) MG/DL Total Bilirubin 1.0 (0.2-1.3) mg/dl AST 19 (17-59) U/L ALT 36 (21-72) U/L Alkaline Phosphatase 137 H (38-126) U/L Total Protein 7.7 (6.3-8.2) G/DL Albumin 4.5 (3.5-5.0) g/dL Globulin 3.2 (2.2-3.9) gm/dL Albumin/Globulin Ratio 1.4 (1.0-2.1) Venous Blood Potassium (3.6-5.2) mmol/L Urine Opiates Screen (NEGATIVE) Urine Methadone Screen (NEGATIVE) Ur Barbiturates Screen (NEGATIVE) Ur Phencyclidine Scrn (NEGATIVE) Ur Amphetamines Screen (NEGATIVE) U Benzodiazepines Scrn (NEGATIVE) U Oth Cocaine Metabols (NEGATIVE) U Cannabinoids Screen (NEGATIVE) Influenza Typ A,B (EIA) (NEGATIVE) 04/26/17 04/26/17 04/26/17 Range/Units 03:03 02:20 02:00 WBC (4.8-10.8) K/uL RBC (4.40-5.90) Mil/uL Hgb (12.0-18.0) g/dL Hct (35.0-51.0) % MCV (80.0-94.0) fl MCH (27.0-31.0) pg MCHC (33.0-37.0) g/dL RDW (11.5-14.5) % Plt Count (130-400) K/uL MPV (7.2-11.7) fl Neut % (Auto) (50.0-75.0) % Lymph % (Auto) (20.0-40.0) % [place] % (Auto) (0.0-10.0) % Eos % (Auto) (0.0-4.0) % Baso % (Auto) (0.0-2.0) % Neut # (1.8-7.0) K/uL Lymph # (1.0-4.3) K/uL [place] # (0.0-0.8) K/uL Eos # (0.0-0.7) K/uL Baso # (0.0-0.2) K/uL pO2 (30-55) mm/Hg VBG pH (7.32-7.43) VBG pCO2 (40-60) mmHg VBG HCO3 mmol/L VBG Total CO2 (22-28) mmol/L VBG O2 Sat (Calc) (40-65) % VBG Base Excess (0.0-2.0) mmol/L VBG Potassium (3.6-5.2) mmol/L Glucose (75-110) mg/dL Lactate (0.7-2.1) mmol/L FiO2 % Blood Gas Comments Crit Value Called To Crit Value Read Back Blood Gas Notified Time Sodium (132-148) mmol/l Potassium (3.6-5.0) MMOL/L Chloride (98-107) mmol/L Carbon Dioxide (22-30) mmol/L Anion Gap (10-20) BUN (9-20) mg/dl Creatinine (0.8-1.5) mg/dl Est GFR ( Amer) Est GFR (Non-Af Amer) POC Glucose (mg/dL) 194 H 229 H (65-110) mg/dL Random Glucose (75-110) mg/dL Calcium (8.4-10.2) mg/dL Phosphorus (2.5-4.5) mg/dl Magnesium (1.6-2.3) MG/DL Total Bilirubin (0.2-1.3) mg/dl AST (17-59) U/L ALT (21-72) U/L Alkaline Phosphatase (38-126) U/L Total Protein (6.3-8.2) G/DL Albumin (3.5-5.0) g/dL Globulin (2.2-3.9) gm/dL Albumin/Globulin Ratio (1.0-2.1) Venous Blood Potassium (3.6-5.2) mmol/L Urine Opiates Screen Negative (NEGATIVE) Urine Methadone Screen Negative (NEGATIVE) Ur Barbiturates Screen Negative (NEGATIVE) Ur Phencyclidine Scrn Negative (NEGATIVE) Ur Amphetamines Screen Negative (NEGATIVE) U Benzodiazepines Scrn Negative (NEGATIVE) U Oth Cocaine Metabols Negative (NEGATIVE) U Cannabinoids Screen Negative (NEGATIVE) Influenza Typ A,B (EIA) (NEGATIVE) 04/26/17 04/26/17 04/25/17 Range/Units 00:58 00:15 23:29 WBC (4.8-10.8) K/uL RBC (4.40-5.90) Mil/uL Hgb (12.0-18.0) g/dL Hct (35.0-51.0) % MCV (80.0-94.0) fl MCH (27.0-31.0) pg MCHC (33.0-37.0) g/dL RDW (11.5-14.5) % Plt Count (130-400) K/uL MPV (7.2-11.7) fl Neut % (Auto) (50.0-75.0) % Lymph % (Auto) (20.0-40.0) % [place] % (Auto) (0.0-10.0) % Eos % (Auto) (0.0-4.0) % Baso % (Auto) (0.0-2.0) % Neut # (1.8-7.0) K/uL Lymph # (1.0-4.3) K/uL [place] # (0.0-0.8) K/uL Eos # (0.0-0.7) K/uL Baso # (0.0-0.2) K/uL pO2 (30-55) mm/Hg VBG pH (7.32-7.43) VBG pCO2 (40-60) mmHg VBG HCO3 mmol/L VBG Total CO2 (22-28) mmol/L VBG O2 Sat (Calc) (40-65) % VBG Base Excess (0.0-2.0) mmol/L VBG Potassium (3.6-5.2) mmol/L Glucose (75-110) mg/dL Lactate (0.7-2.1) mmol/L FiO2 % Blood Gas Comments Crit Value Called To Crit Value Read Back Blood Gas Notified Time Sodium (132-148) mmol/l Potassium (3.6-5.0) MMOL/L Chloride (98-107) mmol/L Carbon Dioxide (22-30) mmol/L Anion Gap (10-20) BUN (9-20) mg/dl Creatinine (0.8-1.5) mg/dl Est GFR ( Amer) Est GFR (Non-Af Amer) POC Glucose (mg/dL) 206 H 200 H 217 H (65-110) mg/dL Random Glucose (75-110) mg/dL Calcium (8.4-10.2) mg/dL Phosphorus (2.5-4.5) mg/dl Magnesium (1.6-2.3) MG/DL Total Bilirubin (0.2-1.3) mg/dl AST (17-59) U/L ALT (21-72) U/L Alkaline Phosphatase (38-126) U/L Total Protein (6.3-8.2) G/DL Albumin (3.5-5.0) g/dL Globulin (2.2-3.9) gm/dL Albumin/Globulin Ratio (1.0-2.1) Venous Blood Potassium (3.6-5.2) mmol/L Urine Opiates Screen (NEGATIVE) Urine Methadone Screen (NEGATIVE) Ur Barbiturates Screen (NEGATIVE) Ur Phencyclidine Scrn (NEGATIVE) Ur Amphetamines Screen (NEGATIVE) U Benzodiazepines Scrn (NEGATIVE) U Oth Cocaine Metabols (NEGATIVE) U Cannabinoids Screen (NEGATIVE) Influenza Typ A,B (EIA) (NEGATIVE) 04/25/17 04/25/17 04/25/17 Range/Units 22:23 21:21 20:14 WBC (4.8-10.8) K/uL RBC (4.40-5.90) Mil/uL Hgb (12.0-18.0) g/dL Hct (35.0-51.0) % MCV (80.0-94.0) fl MCH (27.0-31.0) pg MCHC (33.0-37.0) g/dL RDW (11.5-14.5) % Plt Count (130-400) K/uL MPV (7.2-11.7) fl Neut % (Auto) (50.0-75.0) % Lymph % (Auto) (20.0-40.0) % [place] % (Auto) (0.0-10.0) % Eos % (Auto) (0.0-4.0) % Baso % (Auto) (0.0-2.0) % Neut # (1.8-7.0) K/uL Lymph # (1.0-4.3) K/uL [place] # (0.0-0.8) K/uL Eos # (0.0-0.7) K/uL Baso # (0.0-0.2) K/uL pO2 (30-55) mm/Hg VBG pH (7.32-7.43) VBG pCO2 (40-60) mmHg VBG HCO3 mmol/L VBG Total CO2 (22-28) mmol/L VBG O2 Sat (Calc) (40-65) % VBG Base Excess (0.0-2.0) mmol/L VBG Potassium (3.6-5.2) mmol/L Glucose (75-110) mg/dL Lactate (0.7-2.1) mmol/L FiO2 % Blood Gas Comments Crit Value Called To Crit Value Read Back Blood Gas Notified Time Sodium (132-148) mmol/l Potassium (3.6-5.0) MMOL/L Chloride (98-107) mmol/L Carbon Dioxide (22-30) mmol/L Anion Gap (10-20) BUN (9-20) mg/dl Creatinine (0.8-1.5) mg/dl Est GFR ( Amer) Est GFR (Non-Af Amer) POC Glucose (mg/dL) 198 H 186 H 180 H (65-110) mg/dL Random Glucose (75-110) mg/dL Calcium (8.4-10.2) mg/dL Phosphorus (2.5-4.5) mg/dl Magnesium (1.6-2.3) MG/DL Total Bilirubin (0.2-1.3) mg/dl AST (17-59) U/L ALT (21-72) U/L Alkaline Phosphatase (38-126) U/L Total Protein (6.3-8.2) G/DL Albumin (3.5-5.0) g/dL Globulin (2.2-3.9) gm/dL Albumin/Globulin Ratio (1.0-2.1) Venous Blood Potassium (3.6-5.2) mmol/L Urine Opiates Screen (NEGATIVE) Urine Methadone Screen (NEGATIVE) Ur Barbiturates Screen (NEGATIVE) Ur Phencyclidine Scrn (NEGATIVE) Ur Amphetamines Screen (NEGATIVE) U Benzodiazepines Scrn (NEGATIVE) U Oth Cocaine Metabols (NEGATIVE) U Cannabinoids Screen (NEGATIVE) Influenza Typ A,B (EIA) (NEGATIVE) 04/25/17 04/25/17 04/25/17 Range/Units 20:00 19:58 19:18 WBC (4.8-10.8) K/uL RBC (4.40-5.90) Mil/uL Hgb (12.0-18.0) g/dL Hct (35.0-51.0) % MCV (80.0-94.0) fl MCH (27.0-31.0) pg MCHC (33.0-37.0) g/dL RDW (11.5-14.5) % Plt Count (130-400) K/uL MPV (7.2-11.7) fl Neut % (Auto) (50.0-75.0) % Lymph % (Auto) (20.0-40.0) % [place] % (Auto) (0.0-10.0) % Eos % (Auto) (0.0-4.0) % Baso % (Auto) (0.0-2.0) % Neut # (1.8-7.0) K/uL Lymph # (1.0-4.3) K/uL [place] # (0.0-0.8) K/uL Eos # (0.0-0.7) K/uL Baso # (0.0-0.2) K/uL pO2 46 (30-55) mm/Hg VBG pH 7.04 L* (7.32-7.43) VBG pCO2 20 L (40-60) mmHg VBG HCO3 5.4 mmol/L VBG Total CO2 (22-28) mmol/L VBG O2 Sat (Calc) 85.0 H (40-65) % VBG Base Excess -23.6 L (0.0-2.0) mmol/L VBG Potassium (3.6-5.2) mmol/L Glucose (75-110) mg/dL Lactate (0.7-2.1) mmol/L FiO2 % Blood Gas Comments Crit Value Called To Crit Value Read Back Blood Gas Notified Time Sodium 137 (132-148) mmol/l Potassium 5.9 H (3.6-5.0) MMOL/L Chloride 107 (98-107) mmol/L Carbon Dioxide < 5 L* (22-30) mmol/L Anion Gap 31 H (10-20) BUN 19 (9-20) mg/dl Creatinine 1.1 (0.8-1.5) mg/dl Est GFR ( Amer) > 60 Est GFR (Non-Af Amer) > 60 POC Glucose (mg/dL) 174 H (65-110) mg/dL Random Glucose 214 H (75-110) mg/dL Calcium 9.1 (8.4-10.2) mg/dL Phosphorus 4.9 H (2.5-4.5) mg/dl Magnesium 2.3 (1.6-2.3) MG/DL Total Bilirubin 0.7 (0.2-1.3) mg/dl AST 25 (17-59) U/L ALT 44 (21-72) U/L Alkaline Phosphatase 158 H (38-126) U/L Total Protein 8.4 H (6.3-8.2) G/DL Albumin 4.7 (3.5-5.0) g/dL Globulin 3.7 (2.2-3.9) gm/dL Albumin/Globulin Ratio 1.3 (1.0-2.1) Venous Blood Potassium (3.6-5.2) mmol/L Urine Opiates Screen (NEGATIVE) Urine Methadone Screen (NEGATIVE) Ur Barbiturates Screen (NEGATIVE) Ur Phencyclidine Scrn (NEGATIVE) Ur Amphetamines Screen (NEGATIVE) U Benzodiazepines Scrn (NEGATIVE) U Oth Cocaine Metabols (NEGATIVE) U Cannabinoids Screen (NEGATIVE) Influenza Typ A,B (EIA) (NEGATIVE) 04/25/17 04/25/17 04/25/17 Range/Units 18:18 17:17 16:14 WBC (4.8-10.8) K/uL RBC (4.40-5.90) Mil/uL Hgb (12.0-18.0) g/dL Hct (35.0-51.0) % MCV (80.0-94.0) fl MCH (27.0-31.0) pg MCHC (33.0-37.0) g/dL RDW (11.5-14.5) % Plt Count (130-400) K/uL MPV (7.2-11.7) fl Neut % (Auto) (50.0-75.0) % Lymph % (Auto) (20.0-40.0) % [place] % (Auto) (0.0-10.0) % Eos % (Auto) (0.0-4.0) % Baso % (Auto) (0.0-2.0) % Neut # (1.8-7.0) K/uL Lymph # (1.0-4.3) K/uL [place] # (0.0-0.8) K/uL Eos # (0.0-0.7) K/uL Baso # (0.0-0.2) K/uL pO2 (30-55) mm/Hg VBG pH (7.32-7.43) VBG pCO2 (40-60) mmHg VBG HCO3 mmol/L VBG Total CO2 (22-28) mmol/L VBG O2 Sat (Calc) (40-65) % VBG Base Excess (0.0-2.0) mmol/L VBG Potassium (3.6-5.2) mmol/L Glucose (75-110) mg/dL Lactate (0.7-2.1) mmol/L FiO2 % Blood Gas Comments Crit Value Called To Crit Value Read Back Blood Gas Notified Time Sodium (132-148) mmol/l Potassium (3.6-5.0) MMOL/L Chloride (98-107) mmol/L Carbon Dioxide (22-30) mmol/L Anion Gap (10-20) BUN (9-20) mg/dl Creatinine (0.8-1.5) mg/dl Est GFR ( Amer) Est GFR (Non-Af Amer) POC Glucose (mg/dL) 136 H 179 H 202 H (65-110) mg/dL Random Glucose (75-110) mg/dL Calcium (8.4-10.2) mg/dL Phosphorus (2.5-4.5) mg/dl Magnesium (1.6-2.3) MG/DL Total Bilirubin (0.2-1.3) mg/dl AST (17-59) U/L ALT (21-72) U/L Alkaline Phosphatase (38-126) U/L Total Protein (6.3-8.2) G/DL Albumin (3.5-5.0) g/dL Globulin (2.2-3.9) gm/dL Albumin/Globulin Ratio (1.0-2.1) Venous Blood Potassium (3.6-5.2) mmol/L Urine Opiates Screen (NEGATIVE) Urine Methadone Screen (NEGATIVE) Ur Barbiturates Screen (NEGATIVE) Ur Phencyclidine Scrn (NEGATIVE) Ur Amphetamines Screen (NEGATIVE) U Benzodiazepines Scrn (NEGATIVE) U Oth Cocaine Metabols (NEGATIVE) U Cannabinoids Screen (NEGATIVE) Influenza Typ A,B (EIA) (NEGATIVE) 04/25/17 04/25/17 Range/Units 15:29 11:58 WBC (4.8-10.8) K/uL RBC (4.40-5.90) Mil/uL Hgb (12.0-18.0) g/dL Hct (35.0-51.0) % MCV (80.0-94.0) fl MCH (27.0-31.0) pg MCHC (33.0-37.0) g/dL RDW (11.5-14.5) % Plt Count (130-400) K/uL MPV (7.2-11.7) fl Neut % (Auto) (50.0-75.0) % Lymph % (Auto) (20.0-40.0) % [place] % (Auto) (0.0-10.0) % Eos % (Auto) (0.0-4.0) % Baso % (Auto) (0.0-2.0) % Neut # (1.8-7.0) K/uL Lymph # (1.0-4.3) K/uL [place] # (0.0-0.8) K/uL Eos # (0.0-0.7) K/uL Baso # (0.0-0.2) K/uL pO2 (30-55) mm/Hg VBG pH (7.32-7.43) VBG pCO2 (40-60) mmHg VBG HCO3 mmol/L VBG Total CO2 (22-28) mmol/L VBG O2 Sat (Calc) (40-65) % VBG Base Excess (0.0-2.0) mmol/L VBG Potassium (3.6-5.2) mmol/L Glucose (75-110) mg/dL Lactate (0.7-2.1) mmol/L FiO2 % Blood Gas Comments Crit Value Called To Crit Value Read Back Blood Gas Notified Time Sodium (132-148) mmol/l Potassium (3.6-5.0) MMOL/L Chloride (98-107) mmol/L Carbon Dioxide (22-30) mmol/L Anion Gap (10-20) BUN (9-20) mg/dl Creatinine (0.8-1.5) mg/dl Est GFR ( Amer) Est GFR (Non-Af Amer) POC Glucose (mg/dL) 248 H (65-110) mg/dL Random Glucose (75-110) mg/dL Calcium (8.4-10.2) mg/dL Phosphorus (2.5-4.5) mg/dl Magnesium (1.6-2.3) MG/DL Total Bilirubin (0.2-1.3) mg/dl AST (17-59) U/L ALT (21-72) U/L Alkaline Phosphatase (38-126) U/L Total Protein (6.3-8.2) G/DL Albumin (3.5-5.0) g/dL Globulin (2.2-3.9) gm/dL Albumin/Globulin Ratio (1.0-2.1) Venous Blood Potassium (3.6-5.2) mmol/L Urine Opiates Screen (NEGATIVE) Urine Methadone Screen (NEGATIVE) Ur Barbiturates Screen (NEGATIVE) Ur Phencyclidine Scrn (NEGATIVE) Ur Amphetamines Screen (NEGATIVE) U Benzodiazepines Scrn (NEGATIVE) U Oth Cocaine Metabols (NEGATIVE) U Cannabinoids Screen (NEGATIVE) Influenza Typ A,B (EIA) Negative for flu a/b (NEGATIVE) Laboratory Results - last 24 hr 04/25/17 04/25/17 04/25/17 11:58 15:29 16:14 WBC RBC Hgb Hct MCV MCH MCHC RDW Plt Count MPV Neut % (Auto) Lymph % (Auto) [place] % (Auto) Eos % (Auto) Baso % (Auto) Neut # Lymph # [place] # Eos # Baso # pO2 VBG pH VBG pCO2 VBG HCO3 VBG Total CO2 VBG O2 Sat (Calc) VBG Base Excess VBG Potassium Glucose Lactate FiO2 Blood Gas Comments Crit Value Called To Crit Value Read Back Blood Gas Notified Time Sodium Potassium Chloride Carbon Dioxide Anion Gap BUN Creatinine Est GFR ( Amer) Est GFR (Non-Af Amer) POC Glucose (mg/dL) 248 H 202 H Random Glucose Calcium Phosphorus Magnesium Total Bilirubin AST ALT Alkaline Phosphatase Total Protein Albumin Globulin Albumin/Globulin Ratio Venous Blood Potassium Urine Opiates Screen Urine Methadone Screen Ur Barbiturates Screen Ur Phencyclidine Scrn Ur Amphetamines Screen U Benzodiazepines Scrn U Oth Cocaine Metabols U Cannabinoids Screen Influenza Typ A,B (EIA) Negative for flu a/b 04/25/17 04/25/17 04/25/17 17:17 18:18 19:18 WBC RBC Hgb Hct MCV MCH MCHC RDW Plt Count MPV Neut % (Auto) Lymph % (Auto) [place] % (Auto) Eos % (Auto) Baso % (Auto) Neut # Lymph # [place] # Eos # Baso # pO2 VBG pH VBG pCO2 VBG HCO3 VBG Total CO2 VBG O2 Sat (Calc) VBG Base Excess VBG Potassium Glucose Lactate FiO2 Blood Gas Comments Crit Value Called To Crit Value Read Back Blood Gas Notified Time Sodium Potassium Chloride Carbon Dioxide Anion Gap BUN Creatinine Est GFR ( Amer) Est GFR (Non-Af Amer) POC Glucose (mg/dL) 179 H 136 H 174 H Random Glucose Calcium Phosphorus Magnesium Total Bilirubin AST ALT Alkaline Phosphatase Total Protein Albumin Globulin Albumin/Globulin Ratio Venous Blood Potassium Urine Opiates Screen Urine Methadone Screen Ur Barbiturates Screen Ur Phencyclidine Scrn Ur Amphetamines Screen U Benzodiazepines Scrn U Oth Cocaine Metabols U Cannabinoids Screen Influenza Typ A,B (EIA) 04/25/17 04/25/17 04/25/17 19:58 20:00 20:14 WBC RBC Hgb Hct MCV MCH MCHC RDW Plt Count MPV Neut % (Auto) Lymph % (Auto) [place] % (Auto) Eos % (Auto) Baso % (Auto) Neut # Lymph # [place] # Eos # Baso # pO2 46 VBG pH 7.04 L* VBG pCO2 20 L VBG HCO3 5.4 VBG Total CO2 VBG O2 Sat (Calc) 85.0 H VBG Base Excess -23.6 L VBG Potassium Glucose Lactate FiO2 Blood Gas Comments Crit Value Called To Crit Value Read Back Blood Gas Notified Time Sodium 137 Potassium 5.9 H Chloride 107 Carbon Dioxide < 5 L* Anion Gap 31 H BUN 19 Creatinine 1.1 Est GFR ( Amer) > 60 Est GFR (Non-Af Amer) > 60 POC Glucose (mg/dL) 180 H Random Glucose 214 H Calcium 9.1 Phosphorus 4.9 H Magnesium 2.3 Total Bilirubin 0.7 AST 25 ALT 44 Alkaline Phosphatase 158 H Total Protein 8.4 H Albumin 4.7 Globulin 3.7 Albumin/Globulin Ratio 1.3 Venous Blood Potassium Urine Opiates Screen Urine Methadone Screen Ur Barbiturates Screen Ur Phencyclidine Scrn Ur Amphetamines Screen U Benzodiazepines Scrn U Oth Cocaine Metabols U Cannabinoids Screen Influenza Typ A,B (EIA) 04/25/17 04/25/17 04/25/17 21:21 22:23 23:29 WBC RBC Hgb Hct MCV MCH MCHC RDW Plt Count MPV Neut % (Auto) Lymph % (Auto) [place] % (Auto) Eos % (Auto) Baso % (Auto) Neut # Lymph # [place] # Eos # Baso # pO2 VBG pH VBG pCO2 VBG HCO3 VBG Total CO2 VBG O2 Sat (Calc) VBG Base Excess VBG Potassium Glucose Lactate FiO2 Blood Gas Comments Crit Value Called To Crit Value Read Back Blood Gas Notified Time Sodium Potassium Chloride Carbon Dioxide Anion Gap BUN Creatinine Est GFR ( Amer) Est GFR (Non-Af Amer) POC Glucose (mg/dL) 186 H 198 H 217 H Random Glucose Calcium Phosphorus Magnesium Total Bilirubin AST ALT Alkaline Phosphatase Total Protein Albumin Globulin Albumin/Globulin Ratio Venous Blood Potassium Urine Opiates Screen Urine Methadone Screen Ur Barbiturates Screen Ur Phencyclidine Scrn Ur Amphetamines Screen U Benzodiazepines Scrn U Oth Cocaine Metabols U Cannabinoids Screen Influenza Typ A,B (EIA) 04/26/17 04/26/17 04/26/17 00:15 00:58 02:00 WBC RBC Hgb Hct MCV MCH MCHC RDW Plt Count MPV Neut % (Auto) Lymph % (Auto) [place] % (Auto) Eos % (Auto) Baso % (Auto) Neut # Lymph # [place] # Eos # Baso # pO2 VBG pH VBG pCO2 VBG HCO3 VBG Total CO2 VBG O2 Sat (Calc) VBG Base Excess VBG Potassium Glucose Lactate FiO2 Blood Gas Comments Crit Value Called To Crit Value Read Back Blood Gas Notified Time Sodium Potassium Chloride Carbon Dioxide Anion Gap BUN Creatinine Est GFR ( Amer) Est GFR (Non-Af Amer) POC Glucose (mg/dL) 200 H 206 H 229 H Random Glucose Calcium Phosphorus Magnesium Total Bilirubin AST ALT Alkaline Phosphatase Total Protein Albumin Globulin Albumin/Globulin Ratio Venous Blood Potassium Urine Opiates Screen Urine Methadone Screen Ur Barbiturates Screen Ur Phencyclidine Scrn Ur Amphetamines Screen U Benzodiazepines Scrn U Oth Cocaine Metabols U Cannabinoids Screen Influenza Typ A,B (EIA) 04/26/17 04/26/17 04/26/17 02:20 03:03 04:07 WBC RBC Hgb Hct MCV MCH MCHC RDW Plt Count MPV Neut % (Auto) Lymph % (Auto) [place] % (Auto) Eos % (Auto) Baso % (Auto) Neut # Lymph # [place] # Eos # Baso # pO2 VBG pH VBG pCO2 VBG HCO3 VBG Total CO2 VBG O2 Sat (Calc) VBG Base Excess VBG Potassium Glucose Lactate FiO2 Blood Gas Comments Crit Value Called To Crit Value Read Back Blood Gas Notified Time Sodium Potassium Chloride Carbon Dioxide Anion Gap BUN Creatinine Est GFR ( Amer) Est GFR (Non-Af Amer) POC Glucose (mg/dL) 194 H 182 H Random Glucose Calcium Phosphorus Magnesium Total Bilirubin AST ALT Alkaline Phosphatase Total Protein Albumin Globulin Albumin/Globulin Ratio Venous Blood Potassium Urine Opiates Screen Negative Urine Methadone Screen Negative Ur Barbiturates Screen Negative Ur Phencyclidine Scrn Negative Ur Amphetamines Screen Negative U Benzodiazepines Scrn Negative U Oth Cocaine Metabols Negative U Cannabinoids Screen Negative Influenza Typ A,B (EIA) 04/26/17 04/26/17 04/26/17 04:50 04:50 05:28 WBC 26.4 H RBC 5.41 Hgb 15.8 D Hct 47.9 MCV 88.6 MCH 29.1 MCHC 32.9 L RDW 13.2 Plt Count 337 MPV 8.9 Neut % (Auto) 85.1 H Lymph % (Auto) 6.9 L [place] % (Auto) 7.9 Eos % (Auto) 0.0 Baso % (Auto) 0.1 Neut # 22.5 H Lymph # 1.8 [place] # 2.1 H Eos # 0.0 Baso # 0.0 pO2 VBG pH VBG pCO2 VBG HCO3 VBG Total CO2 VBG O2 Sat (Calc) VBG Base Excess VBG Potassium Glucose Lactate FiO2 Blood Gas Comments Crit Value Called To Crit Value Read Back Blood Gas Notified Time Sodium 133 Potassium 4.5 Chloride 105 Carbon Dioxide 5 L* Anion Gap 28 H BUN 14 Creatinine 1.0 Est GFR ( Amer) > 60 Est GFR (Non-Af Amer) > 60 POC Glucose (mg/dL) 204 H Random Glucose 210 H Calcium 8.9 Phosphorus Magnesium Total Bilirubin 1.0 AST 19 ALT 36 Alkaline Phosphatase 137 H Total Protein 7.7 Albumin 4.5 Globulin 3.2 Albumin/Globulin Ratio 1.4 Venous Blood Potassium Urine Opiates Screen Urine Methadone Screen Ur Barbiturates Screen Ur Phencyclidine Scrn Ur Amphetamines Screen U Benzodiazepines Scrn U Oth Cocaine Metabols U Cannabinoids Screen Influenza Typ A,B (EIA) 04/26/17 04/26/17 04/26/17 06:19 06:46 07:19 WBC RBC Hgb Hct MCV MCH MCHC RDW Plt Count MPV Neut % (Auto) Lymph % (Auto) [place] % (Auto) Eos % (Auto) Baso % (Auto) Neut # Lymph # [place] # Eos # Baso # pO2 50 VBG pH 7.14 L* VBG pCO2 23 L VBG HCO3 9.0 VBG Total CO2 VBG O2 Sat (Calc) 90.0 H VBG Base Excess -19.5 L VBG Potassium Glucose Lactate FiO2 Blood Gas Comments 333 Crit Value Called To [place] yates rn Crit Value Read Back Y Blood Gas Notified Time 650 Sodium Potassium Chloride Carbon Dioxide Anion Gap BUN Creatinine Est GFR ( Amer) Est GFR (Non-Af Amer) POC Glucose (mg/dL) 200 H 184 H Random Glucose Calcium Phosphorus Magnesium Total Bilirubin AST ALT Alkaline Phosphatase Total Protein Albumin Globulin Albumin/Globulin Ratio Venous Blood Potassium Urine Opiates Screen Urine Methadone Screen Ur Barbiturates Screen Ur Phencyclidine Scrn Ur Amphetamines Screen U Benzodiazepines Scrn U Oth Cocaine Metabols U Cannabinoids Screen Influenza Typ A,B (EIA) 04/26/17 04/26/17 04/26/17 08:22 09:07 10:21 WBC RBC Hgb Hct MCV MCH MCHC RDW Plt Count MPV Neut % (Auto) Lymph % (Auto) [place] % (Auto) Eos % (Auto) Baso % (Auto) Neut # Lymph # [place] # Eos # Baso # pO2 VBG pH VBG pCO2 VBG HCO3 VBG Total CO2 VBG O2 Sat (Calc) VBG Base Excess VBG Potassium Glucose Lactate FiO2 Blood Gas Comments Crit Value Called To Crit Value Read Back Blood Gas Notified Time Sodium Potassium Chloride Carbon Dioxide Anion Gap BUN Creatinine Est GFR ( Amer) Est GFR (Non-Af Amer) POC Glucose (mg/dL) 179 H 201 H 196 H Random Glucose Calcium Phosphorus Magnesium Total Bilirubin AST ALT Alkaline Phosphatase Total Protein Albumin Globulin Albumin/Globulin Ratio Venous Blood Potassium Urine Opiates Screen Urine Methadone Screen Ur Barbiturates Screen Ur Phencyclidine Scrn Ur Amphetamines Screen U Benzodiazepines Scrn U Oth Cocaine Metabols U Cannabinoids Screen Influenza Typ A,B (EIA) 04/26/17 04/26/17 04/26/17 11:11 12:20 12:30 WBC RBC Hgb Hct MCV MCH MCHC RDW Plt Count MPV Neut % (Auto) Lymph % (Auto) [place] % (Auto) Eos % (Auto) Baso % (Auto) Neut # Lymph # [place] # Eos # Baso # pO2 VBG pH VBG pCO2 VBG HCO3 VBG Total CO2 VBG O2 Sat (Calc) VBG Base Excess VBG Potassium Glucose Lactate FiO2 Blood Gas Comments Crit Value Called To Crit Value Read Back Blood Gas Notified Time Sodium 133 Potassium 4.1 Chloride 106 Carbon Dioxide 10 L* D Anion Gap 21 H BUN 12 Creatinine 0.8 Est GFR ( Amer) > 60 Est GFR (Non-Af Amer) > 60 POC Glucose (mg/dL) 219 H 264 H Random Glucose 233 H Calcium 8.6 Phosphorus 2.8 Magnesium 2.2 Total Bilirubin AST ALT Alkaline Phosphatase Total Protein Albumin Globulin Albumin/Globulin Ratio Venous Blood Potassium Urine Opiates Screen Urine Methadone Screen Ur Barbiturates Screen Ur Phencyclidine Scrn Ur Amphetamines Screen U Benzodiazepines Scrn U Oth Cocaine Metabols U Cannabinoids Screen Influenza Typ A,B (EIA) 04/26/17 04/26/17 04/26/17 13:12 13:12 13:45 WBC RBC Hgb Hct MCV MCH MCHC RDW Plt Count MPV Neut % (Auto) Lymph % (Auto) [place] % (Auto) Eos % (Auto) Baso % (Auto) Neut # Lymph # [place] # Eos # Baso # pO2 54 VBG pH 7.27 L VBG pCO2 24 L VBG HCO3 13.6 VBG Total CO2 11.7 L VBG O2 Sat (Calc) 94.3 H VBG Base Excess -14.0 L VBG Potassium 4.5 Glucose 243 H Lactate 1.1 FiO2 21.0 Blood Gas Comments Crit Value Called To Crit Value Read Back Blood Gas Notified Time Sodium 131.0 L Potassium Chloride 100.0 Carbon Dioxide Anion Gap BUN Creatinine Est GFR ( Amer) Est GFR (Non-Af Amer) POC Glucose (mg/dL) 216 H 214 H Random Glucose Calcium Phosphorus Magnesium Total Bilirubin AST ALT Alkaline Phosphatase Total Protein Albumin Globulin Albumin/Globulin Ratio Venous Blood Potassium 4.5 Urine Opiates Screen Urine Methadone Screen Ur Barbiturates Screen Ur Phencyclidine Scrn Ur Amphetamines Screen U Benzodiazepines Scrn U Oth Cocaine Metabols U Cannabinoids Screen Influenza Typ A,B (EIA) 04/26/17 04/26/17 14:17 15:22 WBC RBC Hgb Hct MCV MCH MCHC RDW Plt Count MPV Neut % (Auto) Lymph % (Auto) [place] % (Auto) Eos % (Auto) Baso % (Auto) Neut # Lymph # [place] # Eos # Baso # pO2 VBG pH VBG pCO2 VBG HCO3 VBG Total CO2 VBG O2 Sat (Calc) VBG Base Excess VBG Potassium Glucose Lactate FiO2 Blood Gas Comments Crit Value Called To Crit Value Read Back Blood Gas Notified Time Sodium Potassium Chloride Carbon Dioxide Anion Gap BUN Creatinine Est GFR ( Amer) Est GFR (Non-Af Amer) POC Glucose (mg/dL) 207 H 191 H Random Glucose Calcium Phosphorus Magnesium Total Bilirubin AST ALT Alkaline Phosphatase Total Protein Albumin Globulin Albumin/Globulin Ratio Venous Blood Potassium Urine Opiates Screen Urine Methadone Screen Ur Barbiturates Screen Ur Phencyclidine Scrn Ur Amphetamines Screen U Benzodiazepines Scrn U Oth Cocaine Metabols U Cannabinoids Screen Influenza Typ A,B (EIA) Fingerstick Blood Sugar Results: 216 Review of Systems - Cardiovascular Cardiovascular: absent: As Per HPI, Acrocyanosis, Chest Pain, Chest Pain at Rest , Chest Pain with Activity, Claudication, Diaphoresis, Dyspnea, Dyspnea on Exertion, Edema, Irregular Heart Rhythm, Pain Radiating to Arm/Neck/Jaw, Leg Edema, Leg Ulcers, Lightheadedness, Orthopnea, Palpitations, Paroxysmal Nocturnal Dyspnea, Pedal Edema, Radiating Pain, Rapid Heart Rate, Slow Heart Rate, Syncope, Other, UNREMARKABLE - Respiratory Respiratory: absent: As Per HPI, Cough, Dyspnea, Hemoptysis, Dyspnea on Exertion , Wheezing, Snoring, Stridor, Pain on Inspiration, Chest Congestion, Excessive Mucous Production, Change in Mucous Color, Pain with Coughing, Other, UNREMARKABLE - Gastrointestinal Gastrointestinal: absent: As Per HPI, Abdominal Pain, Belching, Bloating, Change in Bowel Habits, Change in Stool Character, Coffee Ground Emesis, Constipation, Cramping, Diarrhea, Dyspepsia, Dysphagia, Early Satiety, Excessive Flatus, Fecal Incontinence, Heartburn, Hematemesis, Hematochezia, Loose Stools, Melena, Nausea, Odynophagia, Temesmus, Vomiting, Other, UNREMARKABLE Critical Care Progress Note - Extremities/Vascular Does the Patient have a Central Venous Catheter?: No Does the Patient need a Central Venous Catheter?: No Does the Patient have a Green Catheter?: No Does the Patient need a Green Catheter?: No - Nutrition Nutrition: Nutrition Category Date Time Status Heart Healthy Diet [DIET] Diets 04/25/17 Dinner Active Assessment/Plan (1) High anion gap metabolic acidosis Current Visit: Yes Status: Acute (2) DKA (diabetic ketoacidoses) Current Visit: Yes Status: Acute (3) DKA, type 1 Current Visit: Yes Status: Acute (4) Elevated lactic acid level Current Visit: Yes Status: Acute (5) Dehydration Current Visit: Yes Status: Acute - Assessment and Plan (Free Text) Assessment: Assessment & Recommendations: Diabetic ketoacidosis High Anion Gap metabolic acidemia Dehydration, hypovolemia R/O Sepsis, Less likely participated by infection, pt afebrile, No signs of infections. High AG metabolic acidosis Hyperkalemia Continue with ICU care for hemodynamic and Respiratory monitoring, He has an AG of 38-->31-->28-->21 Aggressive IV fluid replacement Will change to D51/2 NS at 150 ml/H since BG < 250 mg /dL Cont. insulin drip at 2U /H till AG closed Acchu check Q 1H while on insulin Basic metabolic panel, serum electrolytes and venous pH Q 8H Will replete if K < 3.2 (will add 20-30 mEq to each liter of fluid) Check urine tox, negative Restart Home medications, Insulin Pump after comes off Insulin drip Endocrine cnsult No indications for sodium bicarbonate therapy Monitor renal function and urine output GI/DVT PPX FULL CODE
[2017-04-26] MEDS ORDERED: Dextrose 5%/0.45% NS 1,000 ML IV SCH (17:00)
--- NOTE | 2017-04-26 17:04 | CP.PCM.HP ---
History of Present Illness - History of Present Illness History of Present Illness: 26 yr old M presented to ED with complaint of worsening nausea/vomiting, polyuria, generalized weakness, headache and dizziness x 1 day. PMHx includes IDDM Type 1 diagnosed at age 15, anxiety, asthma and depression. Patient reports he ate excess amount of carbohydrates yesterday and noticed his blood sugars rising to 500's and would not decrease after taking insulin, he has an insulin pump as well. This is his first time experiencing these severe symptoms. Reports compliance with medications and blood sugar checks, recalls his last HbA1c was 7.1 a few months ago. PMD: Piero Corado at [facility] Specialists: Dr. Shania Sy- Psychiatrist PMHx: IDDM Type 1 diagnosed at age 15, anxiety, asthma and depression SurgHx: none FMHx: father is 60's-IDDM dx in 50's, mother healthy, siblings healthy SocHx: denies tobacco, Etoh, drugs Medications: see medication reconciliations (includes Invokamet, insulin pump, Vyvanse, Citalopram, Bupropion, albuterol HFA PRN) Allergies: NKDA Present on Admission - Present on Admission Any Indicators Present on Admission: No History of DVT/PE: No History of Uncontrolled Diabetes: Yes Urinary Catheter: No Decubitus Ulcer Present: No History Surgical Site Infection Following: None Review of Systems - Review of Systems All systems: reviewed and no additional remarkable complaints except (for what is mentioned in the HPI) - Constitutional Constitutional: absent: Chills, Fever - EENT Eyes: absent: Blurred Vision, Change in Vision Ears: absent: Ear Discharge Nose/Mouth/Throat: absent: Nasal Congestion, Nasal Discharge - Cardiovascular Cardiovascular: absent: Chest Pain, Dyspnea, Palpitations, Syncope - Respiratory Respiratory: absent: Cough, Hemoptysis - Gastrointestinal Gastrointestinal: absent: Diarrhea - Genitourinary Genitourinary: absent: Difficulty Urinating, Dysuria - Musculoskeletal Musculoskeletal: Muscle Weakness. absent: Arthralgias - Integumentary Integumentary: absent: Bleeding Lesions - Neurological Neurological: absent: Disequilibrium - Psychiatric Psychiatric: absent: Anxiety, Depression - Endocrine Endocrine: Polyuria - Hematologic/Lymphatic Hematologic: absent: Easy Bleeding, Easy Bruising Past Patient History - Past Medical History & Family History Past Medical History?: Yes - Past Social History Smoking Status: Never Smoked - CARDIAC Hx Cardiac Disorders: No - PULMONARY Hx Respiratory Disorders: Yes Hx Asthma: Yes - NEUROLOGICAL Hx Neurological Disorder: No - HEENT Hx HEENT Problems: No - RENAL Hx Chronic Kidney Disease: No - ENDOCRINE/METABOLIC Hx Endocrine Disorders: Yes Hx Diabetes Mellitus Type 1: Yes - HEMATOLOGICAL/ONCOLOGICAL Hx Blood Disorders: No - INTEGUMENTARY Hx Dermatological Problems: No - MUSCULOSKELETAL/RHEUMATOLOGICAL Hx Musculoskeletal Disorders: No - GASTROINTESTINAL Hx Gastrointestinal Disorders: No - GENITOURINARY/GYNECOLOGICAL Hx Genitourinary Disorders: No - PSYCHIATRIC Hx Psychophysiologic Disorder: Yes Hx Anxiety: Yes Hx Depression: Yes Hx Substance Use: No - SURGICAL HISTORY Hx Surgeries: No - ANESTHESIA Hx Anesthesia: No Meds Allergies/Adverse Reactions: Allergies Allergy/AdvReac Type Severity Reaction Status Date / Time No Known Allergies Allergy Verified 01/27/17 08:21 Physical Exam - Constitutional Appears: Other (ill) - Head Exam Head Exam: ATRAUMATIC, NORMOCEPHALIC - Eye Exam Eye Exam: EOMI - ENT Exam ENT Exam: Mucous Membranes Moist - Neck Exam Neck exam: Positive for: Full Rom. Negative for: Lymphadenopathy - Respiratory Exam Respiratory Exam: Clear to Auscultation Bilateral, NORMAL BREATHING PATTERN (on 2L supplemental O2 via nasal cannula) - Cardiovascular Exam Cardiovascular Exam: REGULAR RHYTHM, +S1, +S2 - GI/Abdominal Exam GI & Abdominal Exam: Normal Bowel Sounds, Soft. absent: Tenderness - Extremities Exam Extremities exam: Positive for: full ROM. Negative for: calf tenderness, pedal edema - Neurological Exam Neurological exam: Alert, CN II-XII Intact, Oriented x3 - Psychiatric Exam Psychiatric exam: Normal Affect, Normal Mood - Skin Skin Exam: Dry, Intact, Warm Results - Vital Signs Recent Vital Signs: Last Vital Signs Temp 98.6 F 04/26/17 16:00 Pulse 106 H 04/26/17 16:00 Resp 10 L 04/26/17 16:00 BP 137/68 04/26/17 16:00 Pulse Ox 100 04/26/17 16:00 - Labs Result Diagrams: 04/26/17 04:50 04/26/17 12:30 Labs: Laboratory Results - last 24 hr 04/25/17 04/25/17 04/25/17 11:58 17:17 18:18 WBC RBC Hgb Hct MCV MCH MCHC RDW Plt Count MPV Neut % (Auto) Lymph % (Auto) [place] % (Auto) Eos % (Auto) Baso % (Auto) Neut # Lymph # [place] # Eos # Baso # pO2 VBG pH VBG pCO2 VBG HCO3 VBG Total CO2 VBG O2 Sat (Calc) VBG Base Excess VBG Potassium Glucose Lactate FiO2 Blood Gas Comments Crit Value Called To Crit Value Read Back Blood Gas Notified Time Sodium Potassium Chloride Carbon Dioxide Anion Gap BUN Creatinine Est GFR ( Amer) Est GFR (Non-Af Amer) POC Glucose (mg/dL) 248 H 179 H 136 H Random Glucose Calcium Phosphorus Magnesium Total Bilirubin AST ALT Alkaline Phosphatase Total Protein Albumin Globulin Albumin/Globulin Ratio Venous Blood Potassium Urine Opiates Screen Urine Methadone Screen Ur Barbiturates Screen Ur Phencyclidine Scrn Ur Amphetamines Screen U Benzodiazepines Scrn U Oth Cocaine Metabols U Cannabinoids Screen 04/25/17 04/25/17 04/25/17 19:18 19:58 20:00 WBC RBC Hgb Hct MCV MCH MCHC RDW Plt Count MPV Neut % (Auto) Lymph % (Auto) [place] % (Auto) Eos % (Auto) Baso % (Auto) Neut # Lymph # [place] # Eos # Baso # pO2 46 VBG pH 7.04 L* VBG pCO2 20 L VBG HCO3 5.4 VBG Total CO2 VBG O2 Sat (Calc) 85.0 H VBG Base Excess -23.6 L VBG Potassium Glucose Lactate FiO2 Blood Gas Comments Crit Value Called To Crit Value Read Back Blood Gas Notified Time Sodium 137 Potassium 5.9 H Chloride 107 Carbon Dioxide < 5 L* Anion Gap 31 H BUN 19 Creatinine 1.1 Est GFR ( Amer) > 60 Est GFR (Non-Af Amer) > 60 POC Glucose (mg/dL) 174 H Random Glucose 214 H Calcium 9.1 Phosphorus 4.9 H Magnesium 2.3 Total Bilirubin 0.7 AST 25 ALT 44 Alkaline Phosphatase 158 H Total Protein 8.4 H Albumin 4.7 Globulin 3.7 Albumin/Globulin Ratio 1.3 Venous Blood Potassium Urine Opiates Screen Urine Methadone Screen Ur Barbiturates Screen Ur Phencyclidine Scrn Ur Amphetamines Screen U Benzodiazepines Scrn U Oth Cocaine Metabols U Cannabinoids Screen 04/25/17 04/25/17 04/25/17 20:14 21:21 22:23 WBC RBC Hgb Hct MCV MCH MCHC RDW Plt Count MPV Neut % (Auto) Lymph % (Auto) [place] % (Auto) Eos % (Auto) Baso % (Auto) Neut # Lymph # [place] # Eos # Baso # pO2 VBG pH VBG pCO2 VBG HCO3 VBG Total CO2 VBG O2 Sat (Calc) VBG Base Excess VBG Potassium Glucose Lactate FiO2 Blood Gas Comments Crit Value Called To Crit Value Read Back Blood Gas Notified Time Sodium Potassium Chloride Carbon Dioxide Anion Gap BUN Creatinine Est GFR ( Amer) Est GFR (Non-Af Amer) POC Glucose (mg/dL) 180 H 186 H 198 H Random Glucose Calcium Phosphorus Magnesium Total Bilirubin AST ALT Alkaline Phosphatase Total Protein Albumin Globulin Albumin/Globulin Ratio Venous Blood Potassium Urine Opiates Screen Urine Methadone Screen Ur Barbiturates Screen Ur Phencyclidine Scrn Ur Amphetamines Screen U Benzodiazepines Scrn U Oth Cocaine Metabols U Cannabinoids Screen 04/25/17 04/26/17 04/26/17 23:29 00:15 00:58 WBC RBC Hgb Hct MCV MCH MCHC RDW Plt Count MPV Neut % (Auto) Lymph % (Auto) [place] % (Auto) Eos % (Auto) Baso % (Auto) Neut # Lymph # [place] # Eos # Baso # pO2 VBG pH VBG pCO2 VBG HCO3 VBG Total CO2 VBG O2 Sat (Calc) VBG Base Excess VBG Potassium Glucose Lactate FiO2 Blood Gas Comments Crit Value Called To Crit Value Read Back Blood Gas Notified Time Sodium Potassium Chloride Carbon Dioxide Anion Gap BUN Creatinine Est GFR ( Amer) Est GFR (Non-Af Amer) POC Glucose (mg/dL) 217 H 200 H 206 H Random Glucose Calcium Phosphorus Magnesium Total Bilirubin AST ALT Alkaline Phosphatase Total Protein Albumin Globulin Albumin/Globulin Ratio Venous Blood Potassium Urine Opiates Screen Urine Methadone Screen Ur Barbiturates Screen Ur Phencyclidine Scrn Ur Amphetamines Screen U Benzodiazepines Scrn U Oth Cocaine Metabols U Cannabinoids Screen 04/26/17 04/26/17 04/26/17 02:00 02:20 03:03 WBC RBC Hgb Hct MCV MCH MCHC RDW Plt Count MPV Neut % (Auto) Lymph % (Auto) [place] % (Auto) Eos % (Auto) Baso % (Auto) Neut # Lymph # [place] # Eos # Baso # pO2 VBG pH VBG pCO2 VBG HCO3 VBG Total CO2 VBG O2 Sat (Calc) VBG Base Excess VBG Potassium Glucose Lactate FiO2 Blood Gas Comments Crit Value Called To Crit Value Read Back Blood Gas Notified Time Sodium Potassium Chloride Carbon Dioxide Anion Gap BUN Creatinine Est GFR ( Amer) Est GFR (Non-Af Amer) POC Glucose (mg/dL) 229 H 194 H Random Glucose Calcium Phosphorus Magnesium Total Bilirubin AST ALT Alkaline Phosphatase Total Protein Albumin Globulin Albumin/Globulin Ratio Venous Blood Potassium Urine Opiates Screen Negative Urine Methadone Screen Negative Ur Barbiturates Screen Negative Ur Phencyclidine Scrn Negative Ur Amphetamines Screen Negative U Benzodiazepines Scrn Negative U Oth Cocaine Metabols Negative U Cannabinoids Screen Negative 04/26/17 04/26/17 04/26/17 04:07 04:50 04:50 WBC 26.4 H RBC 5.41 Hgb 15.8 D Hct 47.9 MCV 88.6 MCH 29.1 MCHC 32.9 L RDW 13.2 Plt Count 337 MPV 8.9 Neut % (Auto) 85.1 H Lymph % (Auto) 6.9 L [place] % (Auto) 7.9 Eos % (Auto) 0.0 Baso % (Auto) 0.1 Neut # 22.5 H Lymph # 1.8 [place] # 2.1 H Eos # 0.0 Baso # 0.0 pO2 VBG pH VBG pCO2 VBG HCO3 VBG Total CO2 VBG O2 Sat (Calc) VBG Base Excess VBG Potassium Glucose Lactate FiO2 Blood Gas Comments Crit Value Called To Crit Value Read Back Blood Gas Notified Time Sodium 133 Potassium 4.5 Chloride 105 Carbon Dioxide 5 L* Anion Gap 28 H BUN 14 Creatinine 1.0 Est GFR ( Amer) > 60 Est GFR (Non-Af Amer) > 60 POC Glucose (mg/dL) 182 H Random Glucose 210 H Calcium 8.9 Phosphorus Magnesium Total Bilirubin 1.0 AST 19 ALT 36 Alkaline Phosphatase 137 H Total Protein 7.7 Albumin 4.5 Globulin 3.2 Albumin/Globulin Ratio 1.4 Venous Blood Potassium Urine Opiates Screen Urine Methadone Screen Ur Barbiturates Screen Ur Phencyclidine Scrn Ur Amphetamines Screen U Benzodiazepines Scrn U Oth Cocaine Metabols U Cannabinoids Screen 04/26/17 04/26/17 04/26/17 05:28 06:19 06:46 WBC RBC Hgb Hct MCV MCH MCHC RDW Plt Count MPV Neut % (Auto) Lymph % (Auto) [place] % (Auto) Eos % (Auto) Baso % (Auto) Neut # Lymph # [place] # Eos # Baso # pO2 50 VBG pH 7.14 L* VBG pCO2 23 L VBG HCO3 9.0 VBG Total CO2 VBG O2 Sat (Calc) 90.0 H VBG Base Excess -19.5 L VBG Potassium Glucose Lactate FiO2 Blood Gas Comments 333 Crit Value Called To [place] yates rn Crit Value Read Back Y Blood Gas Notified Time 650 Sodium Potassium Chloride Carbon Dioxide Anion Gap BUN Creatinine Est GFR ( Amer) Est GFR (Non-Af Amer) POC Glucose (mg/dL) 204 H 200 H Random Glucose Calcium Phosphorus Magnesium Total Bilirubin AST ALT Alkaline Phosphatase Total Protein Albumin Globulin Albumin/Globulin Ratio Venous Blood Potassium Urine Opiates Screen Urine Methadone Screen Ur Barbiturates Screen Ur Phencyclidine Scrn Ur Amphetamines Screen U Benzodiazepines Scrn U Oth Cocaine Metabols U Cannabinoids Screen 04/26/17 04/26/17 04/26/17 07:19 08:22 09:07 WBC RBC Hgb Hct MCV MCH MCHC RDW Plt Count MPV Neut % (Auto) Lymph % (Auto) [place] % (Auto) Eos % (Auto) Baso % (Auto) Neut # Lymph # [place] # Eos # Baso # pO2 VBG pH VBG pCO2 VBG HCO3 VBG Total CO2 VBG O2 Sat (Calc) VBG Base Excess VBG Potassium Glucose Lactate FiO2 Blood Gas Comments Crit Value Called To Crit Value Read Back Blood Gas Notified Time Sodium Potassium Chloride Carbon Dioxide Anion Gap BUN Creatinine Est GFR ( Amer) Est GFR (Non-Af Amer) POC Glucose (mg/dL) 184 H 179 H 201 H Random Glucose Calcium Phosphorus Magnesium Total Bilirubin AST ALT Alkaline Phosphatase Total Protein Albumin Globulin Albumin/Globulin Ratio Venous Blood Potassium Urine Opiates Screen Urine Methadone Screen Ur Barbiturates Screen Ur Phencyclidine Scrn Ur Amphetamines Screen U Benzodiazepines Scrn U Oth Cocaine Metabols U Cannabinoids Screen 04/26/17 04/26/17 04/26/17 10:21 11:11 12:20 WBC RBC Hgb Hct MCV MCH MCHC RDW Plt Count MPV Neut % (Auto) Lymph % (Auto) [place] % (Auto) Eos % (Auto) Baso % (Auto) Neut # Lymph # [place] # Eos # Baso # pO2 VBG pH VBG pCO2 VBG HCO3 VBG Total CO2 VBG O2 Sat (Calc) VBG Base Excess VBG Potassium Glucose Lactate FiO2 Blood Gas Comments Crit Value Called To Crit Value Read Back Blood Gas Notified Time Sodium Potassium Chloride Carbon Dioxide Anion Gap BUN Creatinine Est GFR ( Amer) Est GFR (Non-Af Amer) POC Glucose (mg/dL) 196 H 219 H 264 H Random Glucose Calcium Phosphorus Magnesium Total Bilirubin AST ALT Alkaline Phosphatase Total Protein Albumin Globulin Albumin/Globulin Ratio Venous Blood Potassium Urine Opiates Screen Urine Methadone Screen Ur Barbiturates Screen Ur Phencyclidine Scrn Ur Amphetamines Screen U Benzodiazepines Scrn U Oth Cocaine Metabols U Cannabinoids Screen 04/26/17 04/26/17 04/26/17 12:30 13:12 13:12 WBC RBC Hgb Hct MCV MCH MCHC RDW Plt Count MPV Neut % (Auto) Lymph % (Auto) [place] % (Auto) Eos % (Auto) Baso % (Auto) Neut # Lymph # [place] # Eos # Baso # pO2 54 VBG pH 7.27 L VBG pCO2 24 L VBG HCO3 13.6 VBG Total CO2 11.7 L VBG O2 Sat (Calc) 94.3 H VBG Base Excess -14.0 L VBG Potassium 4.5 Glucose 243 H Lactate 1.1 FiO2 21.0 Blood Gas Comments Crit Value Called To Crit Value Read Back Blood Gas Notified Time Sodium 133 131.0 L Potassium 4.1 Chloride 106 100.0 Carbon Dioxide 10 L* D Anion Gap 21 H BUN 12 Creatinine 0.8 Est GFR ( Amer) > 60 Est GFR (Non-Af Amer) > 60 POC Glucose (mg/dL) 216 H Random Glucose 233 H Calcium 8.6 Phosphorus 2.8 Magnesium 2.2 Total Bilirubin AST ALT Alkaline Phosphatase Total Protein Albumin Globulin Albumin/Globulin Ratio Venous Blood Potassium 4.5 Urine Opiates Screen Urine Methadone Screen Ur Barbiturates Screen Ur Phencyclidine Scrn Ur Amphetamines Screen U Benzodiazepines Scrn U Oth Cocaine Metabols U Cannabinoids Screen 04/26/17 04/26/17 04/26/17 13:45 14:17 15:22 WBC RBC Hgb Hct MCV MCH MCHC RDW Plt Count MPV Neut % (Auto) Lymph % (Auto) [place] % (Auto) Eos % (Auto) Baso % (Auto) Neut # Lymph # [place] # Eos # Baso # pO2 VBG pH VBG pCO2 VBG HCO3 VBG Total CO2 VBG O2 Sat (Calc) VBG Base Excess VBG Potassium Glucose Lactate FiO2 Blood Gas Comments Crit Value Called To Crit Value Read Back Blood Gas Notified Time Sodium Potassium Chloride Carbon Dioxide Anion Gap BUN Creatinine Est GFR ( Amer) Est GFR (Non-Af Amer) POC Glucose (mg/dL) 214 H 207 H 191 H Random Glucose Calcium Phosphorus Magnesium Total Bilirubin AST ALT Alkaline Phosphatase Total Protein Albumin Globulin Albumin/Globulin Ratio Venous Blood Potassium Urine Opiates Screen Urine Methadone Screen Ur Barbiturates Screen Ur Phencyclidine Scrn Ur Amphetamines Screen U Benzodiazepines Scrn U Oth Cocaine Metabols U Cannabinoids Screen 04/26/17 16:26 WBC RBC Hgb Hct MCV MCH MCHC RDW Plt Count MPV Neut % (Auto) Lymph % (Auto) [place] % (Auto) Eos % (Auto) Baso % (Auto) Neut # Lymph # [place] # Eos # Baso # pO2 VBG pH VBG pCO2 VBG HCO3 VBG Total CO2 VBG O2 Sat (Calc) VBG Base Excess VBG Potassium Glucose Lactate FiO2 Blood Gas Comments Crit Value Called To Crit Value Read Back Blood Gas Notified Time Sodium Potassium Chloride Carbon Dioxide Anion Gap BUN Creatinine Est GFR ( Amer) Est GFR (Non-Af Amer) POC Glucose (mg/dL) 211 H Random Glucose Calcium Phosphorus Magnesium Total Bilirubin AST ALT Alkaline Phosphatase Total Protein Albumin Globulin Albumin/Globulin Ratio Venous Blood Potassium Urine Opiates Screen Urine Methadone Screen Ur Barbiturates Screen Ur Phencyclidine Scrn Ur Amphetamines Screen U Benzodiazepines Scrn U Oth Cocaine Metabols U Cannabinoids Screen Assessment & Plan - Assessment and Plan (Free Text) Assessment: 26 yr old M admitted for DKA. Anion gap remains elevated, HCO3 remains low. -Admit to ICU -continue insulin drip, D5 IVF, zofran PRN -serial BMP's -2L supplemental O2 via nasal cannula to keep SpO2 >92% -moderate carbohydrate diet -hypoglycemia protocol - Date & Time Date: 04/26/17 Time: 09:50
[2017-04-26 20:21] LABS: VENOUS BLOOD GAS BASE EXCESS -9.4 mmol/L (0.0-2.0); VENOUS BLOOD GAS PCO2 31 mmHg (40-60); VENOUS BLOOD GAS PO2 33 mm/Hg (30-55); VENOUS BLOOD PH 7.31 (7.32-7.43)
[2017-04-26 20:33] LABS: BLOOD UREA NITROGEN 13 mg/dl (9-20); CALCIUM 9.2 mg/dL (8.4-10.2); GFR AFRICAN-AMERICAN > 60; GFR NON-AFRICAN AMERICAN > 60
[2017-04-27 06:09] LABS: BLOOD UREA NITROGEN 10 mg/dl (9-20); CALCIUM 8.9 mg/dL (8.4-10.2); GFR AFRICAN-AMERICAN > 60; GFR NON-AFRICAN AMERICAN > 60
[2017-04-27] MEDS ORDERED: Potassium Chloride 20 mEq ER Tab PO ONE (09:00)
[2017-04-27] MEDS: Potassium Ch 20mEq in D5-1/2NS 1,000 ML IV SCH ×2 (09:36→16:33)
[2017-04-27] MEDS ORDERED: Insulin Detemir 100 Units/ml Inj SC SCH ×2 (13:39→22:00)
--- NOTE | 2017-04-27 15:11 | CP.CCUPN ---
CCU Subjective - Physician Review Subjective (Free Text): Awake and alert, oriented x 3, no distress, excellent appetite noted and remains on 4 units/hr Insulin drip as of this AM. Todays labs show persistent acidosis though slowly resolving. He denies any new complaints. Other vitals and I/O's reviewed. No fever spikes. ROS: No other pertinent negs or positives on 10+ system review. PMSFH: All other Nursing and physician documentation reviewed to date; no new pertinent info noted relevant to current medical problems. IMPRESSION / MAJOR PROBLEMS NOW: 1. DKA 2. Hypokalemia PLAN: 1. Aware patient requesting and expecting to be discharged today; but lab parameters still show an acidotic state unless labs are repeated in the afternoon and serum bicarbonate levels improve. This is despite a normal anion gap calculation as listed in [facility]. 2. K levels low and IVFs changed to give supplemental potassium. Would also replete phosphate. 3. Lactate levels resolved and can be typical for DKA and not necessarily indicate occult infection as an inciting event for the development of DKA. CCU Objective - Vital Signs / Intake & Output Vital Signs (Last 4 hours): Vital Signs Temp Pulse Resp BP Pulse Ox 04/27/17 12:00 98.6 F 96 H 20 121/77 99 Intake and Output (Last 8hrs): Intake & Output 04/27/17 04/27/17 04/27/17 06:59 14:59 22:59 Intake Total 1219 196 Balance 1219 196 Intake: IV 1219 76 Oral 120 Other: # Voids Urine, Voided 1 1 - Physical Exam Head: Positive for: Atraumatic, Normocephalic Pupils: Positive for: PERRL Extroacular Muscles: Positive for: EOMI Conjunctiva: Positive for: Normal Ears: Positive for: Normal Mouth: Positive for: Moist Mucous Membranes Nose (Internal): Positive for: Normal Inspection Neck: Positive for: Normal Range of Motion. Negative for: Meningeal Signs, JVD Respiratory/Chest: Positive for: Clear to Auscultation Cardiovascular: Positive for: Regular Rate and Rhythm. Negative for: Murmurs, Rub Abdomen: Positive for: Normal Bowel Sounds, Mass/Organomegaly. Negative for: Tenderness, Distention Upper Extremity: Positive for: Normal Inspection, NORMAL PULSES, Capillary Refill < 2s. Negative for: Cyanosis, Edema Lower Extremity: Positive for: Normal Inspection, NORMAL PULSES, Capillary Refill < 2 s. Negative for: Edema, CALF TENDERNESS Neurological: Positive for: GCS=15, CN II-XII Intact, Speech Normal, Motor Func Grossly Intact, Normal Sensory Function Psychiatric: Positive for: Alert, Oriented x 3, Normal Insight, Normal Concentration - Medications Active Medications: Active Medications Generic Name Dose Route Start Last Admin Trade Name Freq PRN Reason Stop Dose Admin Acetaminophen 650 mg 04/25/17 20:15 04/25/17 21:21 Tylenol 325mg Tab PO 650 mg Q6 PRN Administration Other Dextrose 0 ml 04/25/17 13:40 Dextrose 50% Inj IV STAT PRN Hypoglycemia Protocol Protocol Dextrose 0 gm 04/25/17 13:40 Glutose 15 PO ONCE PRN Hypoglycemia Protocol Protocol Dextrose 0 ml 04/25/17 18:26 Dextrose 50% Inj IV STAT PRN Hypoglycemia Protocol Protocol Dextrose 0 gm 04/25/17 18:26 Glutose 15 PO ONCE PRN Hypoglycemia Protocol Protocol Glucagon 0 mg 04/25/17 13:40 Glucagen Diagnostic Kit IM STAT PRN Hypoglycemia Protocol Protocol Glucagon 0 mg 04/25/17 18:26 Glucagen Diagnostic Kit IM STAT PRN Hypoglycemia Protocol Protocol Potassium Chloride/Dextrose/Sod Cl 1,000 mls @ 150 mls/hr 04/27/17 07:45 09:36 Potassium Chl 20 Meq In D5-1/2ns IV 04/28/17 07:34 150 mls/hr .Q6H40M AVELINA Administration Insulin Detemir 0 units 04/27/17 13:39 Levemir SC HS AVELINA Protocol Ondansetron HCl 4 mg 04/25/17 19:09 Zofran Inj IVP Q4 PRN Nausea/Vomiting Tramadol HCl 50 mg 04/25/17 20:17 Ultram PO Q6 PRN Pain, severe (8-10) - Patient Studies Lab Studies: Microbiology Studies 04/25/17 16:00 Blood Culture - Preliminary Blood-Venous NO GROWTH AFTER 24 HOURS 04/25/17 15:26 Blood Culture - Preliminary Blood-Venous NO GROWTH AFTER 24 HOURS Lab Studies 04/27/17 04/27/17 04/27/17 Range/Units 12:16 11:12 10:16 pO2 (30-55) mm/Hg VBG pH (7.32-7.43) VBG pCO2 (40-60) mmHg VBG HCO3 mmol/L VBG O2 Sat (Calc) (40-65) % VBG Base Excess (0.0-2.0) mmol/L Sodium (132-148) mmol/l Potassium (3.6-5.0) MMOL/L Chloride (98-107) mmol/L Carbon Dioxide (22-30) mmol/L Anion Gap (10-20) BUN (9-20) mg/dl Creatinine (0.8-1.5) mg/dl Est GFR ( Amer) Est GFR (Non-Af Amer) POC Glucose (mg/dL) 194 H 233 H 283 H (65-110) mg/dL Random Glucose (75-110) mg/dL Calcium (8.4-10.2) mg/dL Phosphorus (2.5-4.5) mg/dl Magnesium (1.6-2.3) MG/DL 04/27/17 04/27/17 04/27/17 Range/Units 09:21 08:17 07:44 pO2 (30-55) mm/Hg VBG pH (7.32-7.43) VBG pCO2 (40-60) mmHg VBG HCO3 mmol/L VBG O2 Sat (Calc) (40-65) % VBG Base Excess (0.0-2.0) mmol/L Sodium (132-148) mmol/l Potassium (3.6-5.0) MMOL/L Chloride (98-107) mmol/L Carbon Dioxide (22-30) mmol/L Anion Gap (10-20) BUN (9-20) mg/dl Creatinine (0.8-1.5) mg/dl Est GFR ( Amer) Est GFR (Non-Af Amer) POC Glucose (mg/dL) 272 H 190 H (65-110) mg/dL Random Glucose (75-110) mg/dL Calcium (8.4-10.2) mg/dL Phosphorus 2.1 L (2.5-4.5) mg/dl Magnesium (1.6-2.3) MG/DL 04/27/17 04/27/17 04/27/17 Range/Units 07:13 06:40 05:15 pO2 (30-55) mm/Hg VBG pH (7.32-7.43) VBG pCO2 (40-60) mmHg VBG HCO3 mmol/L VBG O2 Sat (Calc) (40-65) % VBG Base Excess (0.0-2.0) mmol/L Sodium (132-148) mmol/l Potassium (3.6-5.0) MMOL/L Chloride (98-107) mmol/L Carbon Dioxide (22-30) mmol/L Anion Gap (10-20) BUN (9-20) mg/dl Creatinine (0.8-1.5) mg/dl Est GFR ( Amer) Est GFR (Non-Af Amer) POC Glucose (mg/dL) 181 H 184 H 198 H (65-110) mg/dL Random Glucose (75-110) mg/dL Calcium (8.4-10.2) mg/dL Phosphorus (2.5-4.5) mg/dl Magnesium (1.6-2.3) MG/DL 04/27/17 04/27/17 04/27/17 Range/Units 04:45 04:40 04:24 pO2 (30-55) mm/Hg VBG pH (7.32-7.43) VBG pCO2 (40-60) mmHg VBG HCO3 mmol/L VBG O2 Sat (Calc) (40-65) % VBG Base Excess (0.0-2.0) mmol/L Sodium 138 (132-148) mmol/l Potassium 3.2 L (3.6-5.0) MMOL/L Chloride 103 (98-107) mmol/L Carbon Dioxide 18 L (22-30) mmol/L Anion Gap 20 (10-20) BUN 10 (9-20) mg/dl Creatinine 0.7 L (0.8-1.5) mg/dl Est GFR ( Amer) > 60 Est GFR (Non-Af Amer) > 60 POC Glucose (mg/dL) 192 H (65-110) mg/dL Random Glucose 214 H (75-110) mg/dL Calcium 8.9 (8.4-10.2) mg/dL Phosphorus (2.5-4.5) mg/dl Magnesium 2.3 (1.6-2.3) MG/DL 04/27/17 04/27/17 04/27/17 Range/Units 03:19 02:18 01:16 pO2 (30-55) mm/Hg VBG pH (7.32-7.43) VBG pCO2 (40-60) mmHg VBG HCO3 mmol/L VBG O2 Sat (Calc) (40-65) % VBG Base Excess (0.0-2.0) mmol/L Sodium (132-148) mmol/l Potassium (3.6-5.0) MMOL/L Chloride (98-107) mmol/L Carbon Dioxide (22-30) mmol/L Anion Gap (10-20) BUN (9-20) mg/dl Creatinine (0.8-1.5) mg/dl Est GFR ( Amer) Est GFR (Non-Af Amer) POC Glucose (mg/dL) 207 H 201 H 224 H (65-110) mg/dL Random Glucose (75-110) mg/dL Calcium (8.4-10.2) mg/dL Phosphorus (2.5-4.5) mg/dl Magnesium (1.6-2.3) MG/DL 04/27/17 04/26/17 04/26/17 Range/Units 00:13 23:15 22:19 pO2 (30-55) mm/Hg VBG pH (7.32-7.43) VBG pCO2 (40-60) mmHg VBG HCO3 mmol/L VBG O2 Sat (Calc) (40-65) % VBG Base Excess (0.0-2.0) mmol/L Sodium (132-148) mmol/l Potassium (3.6-5.0) MMOL/L Chloride (98-107) mmol/L Carbon Dioxide (22-30) mmol/L Anion Gap (10-20) BUN (9-20) mg/dl Creatinine (0.8-1.5) mg/dl Est GFR ( Amer) Est GFR (Non-Af Amer) POC Glucose (mg/dL) 215 H 231 H 235 H (65-110) mg/dL Random Glucose (75-110) mg/dL Calcium (8.4-10.2) mg/dL Phosphorus (2.5-4.5) mg/dl Magnesium (1.6-2.3) MG/DL 04/26/17 04/26/17 04/26/17 Range/Units 21:11 20:21 20:17 pO2 33 (30-55) mm/Hg VBG pH 7.31 L (7.32-7.43) VBG pCO2 31 L (40-60) mmHg VBG HCO3 16.5 mmol/L VBG O2 Sat (Calc) 77.6 H (40-65) % VBG Base Excess -9.4 L (0.0-2.0) mmol/L Sodium (132-148) mmol/l Potassium (3.6-5.0) MMOL/L Chloride (98-107) mmol/L Carbon Dioxide (22-30) mmol/L Anion Gap (10-20) BUN (9-20) mg/dl Creatinine (0.8-1.5) mg/dl Est GFR ( Amer) Est GFR (Non-Af Amer) POC Glucose (mg/dL) 253 H 229 H (65-110) mg/dL Random Glucose (75-110) mg/dL Calcium (8.4-10.2) mg/dL Phosphorus (2.5-4.5) mg/dl Magnesium (1.6-2.3) MG/DL 04/26/17 04/26/17 04/26/17 Range/Units 20:00 19:20 18:25 pO2 (30-55) mm/Hg VBG pH (7.32-7.43) VBG pCO2 (40-60) mmHg VBG HCO3 mmol/L VBG O2 Sat (Calc) (40-65) % VBG Base Excess (0.0-2.0) mmol/L Sodium 132 (132-148) mmol/l Potassium 3.8 (3.6-5.0) MMOL/L Chloride 101 (98-107) mmol/L Carbon Dioxide 16 L (22-30) mmol/L Anion Gap 19 (10-20) BUN 13 (9-20) mg/dl Creatinine 1.0 (0.8-1.5) mg/dl Est GFR ( Amer) > 60 Est GFR (Non-Af Amer) > 60 POC Glucose (mg/dL) 227 H 242 H (65-110) mg/dL Random Glucose 246 H (75-110) mg/dL Calcium 9.2 (8.4-10.2) mg/dL Phosphorus (2.5-4.5) mg/dl Magnesium (1.6-2.3) MG/DL 04/26/17 04/26/1704/26/18 Range/Units 17:31 16:26 15:22 pO2 (30-55) mm/Hg VBG pH (7.32-7.43) VBG pCO2 (40-60) mmHg VBG HCO3 mmol/L VBG O2 Sat (Calc) (40-65) % VBG Base Excess (0.0-2.0) mmol/L Sodium (132-148) mmol/l Potassium (3.6-5.0) MMOL/L Chloride (98-107) mmol/L Carbon Dioxide (22-30) mmol/L Anion Gap (10-20) BUN (9-20) mg/dl Creatinine (0.8-1.5) mg/dl Est GFR ( Amer) Est GFR (Non-Af Amer) POC Glucose (mg/dL) 201 H 211 H 191 H (65-110) mg/dL Random Glucose (75-110) mg/dL Calcium (8.4-10.2) mg/dL Phosphorus (2.5-4.5) mg/dl Magnesium (1.6-2.3) MG/DL 04/26/17 04/26/17 04/26/17 Range/Units 14:17 13:45 13:12 pO2 (30-55) mm/Hg VBG pH (7.32-7.43) VBG pCO2 (40-60) mmHg VBG HCO3 mmol/L VBG O2 Sat (Calc) (40-65) % VBG Base Excess (0.0-2.0) mmol/L Sodium (132-148) mmol/l Potassium (3.6-5.0) MMOL/L Chloride (98-107) mmol/L Carbon Dioxide (22-30) mmol/L Anion Gap (10-20) BUN (9-20) mg/dl Creatinine (0.8-1.5) mg/dl Est GFR ( Amer) Est GFR (Non-Af Amer) POC Glucose (mg/dL) 207 H 214 H 216 H (65-110) mg/dL Random Glucose (75-110) mg/dL Calcium (8.4-10.2) mg/dL Phosphorus (2.5-4.5) mg/dl Magnesium (1.6-2.3) MG/DL Laboratory Results - last 24 hr 0104/26/17 04/26/17 13:12 13:45 14:17 pO2 VBG pH VBG pCO2 VBG HCO3 VBG O2 Sat (Calc) VBG Base Excess Sodium Potassium Chloride Carbon Dioxide Anion Gap BUN Creatinine Est GFR ( Amer) Est GFR (Non-Af Amer) POC Glucose (mg/dL) 216 H 214 H 207 H Random Glucose Calcium Phosphorus Magnesium 04/26/17 04/26/17 04/26/17 15:22 16:26 17:31 pO2 VBG pH VBG pCO2 VBG HCO3 VBG O2 Sat (Calc) VBG Base Excess Sodium Potassium Chloride Carbon Dioxide Anion Gap BUN Creatinine Est GFR ( Amer) Est GFR (Non-Af Amer) POC Glucose (mg/dL) 191 H 211 H 201 H Random Glucose Calcium Phosphorus Magnesium 04/26/17 04/26/17 04/26/17 18:25 19:20 20:00 pO2 VBG pH VBG pCO2 VBG HCO3 VBG O2 Sat (Calc) VBG Base Excess Sodium 132 Potassium 3.8 Chloride 101 Carbon Dioxide 16 L Anion Gap 19 BUN 13 Creatinine 1.0 Est GFR ( Amer) > 60 Est GFR (Non-Af Amer) > 60 POC Glucose (mg/dL) 242 H 227 H Random Glucose 246 H Calcium 9.2 Phosphorus Magnesium 04/26/17 04/26/17 04/26/17 20:17 20:21 21:11 pO2 33 VBG pH 7.31 L VBG pCO2 31 L VBG HCO3 16.5 VBG O2 Sat (Calc) 77.6 H VBG Base Excess -9.4 L Sodium Potassium Chloride Carbon Dioxide Anion Gap BUN Creatinine Est GFR ( Amer) Est GFR (Non-Af Amer) POC Glucose (mg/dL) 229 H 253 H Random Glucose Calcium Phosphorus Magnesium 04/26/17 04/26/17 04/27/17 22:19 23:15 00:13 pO2 VBG pH VBG pCO2 VBG HCO3 VBG O2 Sat (Calc) VBG Base Excess Sodium Potassium Chloride Carbon Dioxide Anion Gap BUN Creatinine Est GFR ( Amer) Est GFR (Non-Af Amer) POC Glucose (mg/dL) 235 H 231 H 215 H Random Glucose Calcium Phosphorus Magnesium 04/27/17 04/27/17 04/27/17 01:16 02:18 03:19 pO2 VBG pH VBG pCO2 VBG HCO3 VBG O2 Sat (Calc) VBG Base Excess Sodium Potassium Chloride Carbon Dioxide Anion Gap BUN Creatinine Est GFR ( Amer) Est GFR (Non-Af Amer) POC Glucose (mg/dL) 224 H 201 H 207 H Random Glucose Calcium Phosphorus Magnesium 04/27/17 04/27/17 04/27/17 04:24 04:40 04:45 pO2 VBG pH VBG pCO2 VBG HCO3 VBG O2 Sat (Calc) VBG Base Excess Sodium 138 Potassium 3.2 L Chloride 103 Carbon Dioxide 18 L Anion Gap 20 BUN 10 Creatinine 0.7 L Est GFR ( Amer) > 60 Est GFR (Non-Af Amer) > 60 POC Glucose (mg/dL) 192 H Random Glucose 214 H Calcium 8.9 Phosphorus Magnesium 2.3 04/27/17 04/27/17 04/27/17 05:15 06:40 07:13 pO2 VBG pH VBG pCO2 VBG HCO3 VBG O2 Sat (Calc) VBG Base Excess Sodium Potassium Chloride Carbon Dioxide Anion Gap BUN Creatinine Est GFR ( Amer) Est GFR (Non-Af Amer) POC Glucose (mg/dL) 198 H 184 H 181 H Random Glucose Calcium Phosphorus Magnesium 04/27/17 04/27/17 04/27/17 07:44 08:17 09:21 pO2 VBG pH VBG pCO2 VBG HCO3 VBG O2 Sat (Calc) VBG Base Excess Sodium Potassium Chloride Carbon Dioxide Anion Gap BUN Creatinine Est GFR ( Amer) Est GFR (Non-Af Amer) POC Glucose (mg/dL) 190 H 272 H Random Glucose Calcium Phosphorus 2.1 L Magnesium 04/27/17 04/27/17 04/27/17 10:16 11:12 12:16 pO2 VBG pH VBG pCO2 VBG HCO3 VBG O2 Sat (Calc) VBG Base Excess Sodium Potassium Chloride Carbon Dioxide Anion Gap BUN Creatinine Est GFR ( Amer) Est GFR (Non-Af Amer) POC Glucose (mg/dL) 283 H 233 H 194 H Random Glucose Calcium Phosphorus Magnesium Fingerstick Blood Sugar Results: 236 Review of Systems - Review of Systems All systems: reviewed and no additional remarkable complaints except (as above) Critical Care Progress Note - Nutrition Nutrition: Nutrition Category Date Time Status Consistent Carbohydrate [DIET] Diets 04/27/17 Breakfast Active
[2017-04-27 15:59] LABS: BLOOD UREA NITROGEN 11 mg/dl (9-20); CALCIUM 8.9 mg/dL (8.4-10.2); GFR AFRICAN-AMERICAN > 60; GFR NON-AFRICAN AMERICAN > 60
[2017-04-27] MEDS ORDERED: Insulin Regular 100 units/ml SC SCH (16:30)
--- NOTE | 2017-04-27 16:55 | CP.PCM.PN ---
Subjective - Date & Time of Evaluation Date of Evaluation: 04/27/17 Time of Evaluation: 11:10 - Subjective Subjective: Patient seen and examined at bedside with attending-Dr. Lloyd. Denies chest pain, SOB, weakness or dizziness. Patient is tolerating PO diet, has normal urine and stool output. Objective - Vital Signs/Intake and Output Vital Signs (last 24 hours): Temp Pulse Resp BP Pulse Ox 98.7 F 86 17 111/74 98 04/27/17 16:00 04/27/17 16:00 04/27/17 16:00 04/27/17 16:00 04/27/17 16:00 Intake and Output: 04/27/17 04/27/17 06:59 18:59 Intake Total 1916 1995 Balance 1916 1995 - Medications Medications: Current Medications Acetaminophen (Tylenol 325mg Tab) 650 mg PO Q6 PRN PRN Reason: Other Last Admin: 04/25/17 21:21 Dose: 650 mg Dextrose (Dextrose 50% Inj) 0 ml IV STAT PRN; Protocol PRN Reason: Hypoglycemia Protocol Dextrose (Glutose 15) 0 gm PO ONCE PRN; Protocol PRN Reason: Hypoglycemia Protocol Dextrose (Dextrose 50% Inj) 0 ml IV STAT PRN; Protocol PRN Reason: Hypoglycemia Protocol Dextrose (Glutose 15) 0 gm PO ONCE PRN; Protocol PRN Reason: Hypoglycemia Protocol Glucagon (Glucagen Diagnostic Kit) 0 mg IM STAT PRN; Protocol PRN Reason: Hypoglycemia Protocol Glucagon (Glucagen Diagnostic Kit) 0 mg IM STAT PRN; Protocol PRN Reason: Hypoglycemia Protocol Potassium Chloride/Dextrose/Sod Cl (Potassium Chl 20 Meq In D5-1/2ns) 1,000 mls @ 150 mls/hr IV .Q6H40M [facility] Stop: 04/28/17 07:34 Last Admin: 04/27/17 16:33 Dose: 150 mls/hr Ondansetron HCl (Zofran Inj) 4 mg IVP Q4 PRN PRN Reason: Nausea/Vomiting Tramadol HCl (Ultram) 50 mg PO Q6 PRN PRN Reason: Pain, severe (8-10) - Labs Labs: 04/26/17 04:50 04/27/17 15:20 - Constitutional Appears: No Acute Distress - Head Exam Head Exam: ATRAUMATIC, NORMOCEPHALIC - Eye Exam Eye Exam: EOMI - ENT Exam ENT Exam: Mucous Membranes Moist - Neck Exam Neck Exam: Full ROM - Respiratory Exam Respiratory Exam: Clear to Ausculation Bilateral, NORMAL BREATHING PATTERN - Cardiovascular Exam Cardiovascular Exam: REGULAR RHYTHM, +S1, +S2 - GI/Abdominal Exam GI & Abdominal Exam: Soft, Normal Bowel Sounds - Extremities Exam Extremities Exam: Full ROM. absent: Pedal Edema - Neurological Exam Neurological Exam: Alert, Awake, CN II-XII Intact, Oriented x3 - Psychiatric Exam Psychiatric exam: Normal Affect, Normal Mood - Skin Skin Exam: Dry, Intact, Warm Assessment and Plan - Assessment and Plan (Free Text) Assessment: 26 yr old M admitted for DKA. Anion gap remains elevated though has improved, HCO3 remains low though has also improved. -transfer to med/surg -discontinue insulin drip, D5 IVF -patient requested to start using his insulin pump, will monitor and document insulin administration -Potassium supplemented, zofran PRN -f/u BMP next AM -2L supplemental O2 via nasal cannula to keep SpO2 >92% -moderate carbohydrate diet -hypoglycemia protocol
[2017-04-27] MEDS ORDERED: Alum-Mag Hydrox-Simethicone Susp (30 mL) PO ONE (20:11)
[2017-04-27 21:01] LABS: BLOOD UREA NITROGEN 15 mg/dl (9-20); CALCIUM 9.3 mg/dL (8.4-10.2); GFR AFRICAN-AMERICAN > 60; GFR NON-AFRICAN AMERICAN > 60
[2017-04-27] MEDS ORDERED: Glucagon Recombinant 1 mg Inj IM PRN (21:36)
[2017-04-27] MEDS ORDERED: Dextrose 50% SYRINGE Inj (50 ml) IV PRN (21:36)
--- NOTE | 2017-04-27 21:41 | CP.PCM.PCO ---
Physician Communication Note - Physician Communication Note Physician Communication Note: Anion Gap of 28 and CO2 of 11 with BG of 452mg/dl
[2017-04-27] MEDS ORDERED: Insulin Regular 100 units/ml SC STA (21:58)
[2017-04-27] MEDS ORDERED: Insulin Lispro (humaLOG) 100 Units/ml Inj SC STA (22:11)
[2017-04-27] MEDS ORDERED: Insulin Detemir 100 Units/ml Inj SC STA (22:12)
[2017-04-27] MEDS ORDERED: Sodium Chloride 0.9% 1,000 ML IV SCH (22:15)
[2017-04-28 02:08] LABS: BLOOD UREA NITROGEN 15 mg/dl (9-20); CALCIUM 8.9 mg/dL (8.4-10.2); GFR AFRICAN-AMERICAN > 60; GFR NON-AFRICAN AMERICAN > 60
[2017-04-28] MEDS ORDERED: Dextrose 5%/0.9% NS 1,000 ML IV SCH (04:00)
[2017-04-28 06:00] LABS: BASO % 0.3 % (0.0-2.0); EOS # 0.1 K/uL (0.0-0.7); EOS % 0.9 % (0.0-4.0); HEMOGLOBIN 15.8 g/dL (12.0-18.0); LYMPH # 2.2 K/uL (1.0-4.3); LYMPH % 18.1 % (20.0-40.0); MEAN CELL VOLUME 86.6 fl (80.0-94.0); MEAN CORPUSCULAR HEMOGLOBIN 29.4 pg (27.0-31.0); MEAN PLATELET VOLUME 8.7 fl (7.2-11.7); MONO # 1.3 K/uL (0.0-0.8); MONO % 10.5 % (0.0-10.0); NEUT # 8.7 K/uL (1.8-7.0); NEUT % 70.2 % (50.0-75.0); NRBC % 0.2 % (0.0-0.0); RBC 5.37 Mil/uL (4.40-5.90); WHITE BLOOD COUNT 12.4 K/uL (4.8-10.8)
[2017-04-28 06:08] LABS: ALB/GLOB RATIO 1.3 (1.0-2.1); ALBUMIN 4.2 g/dL (3.5-5.0); ALT/SGPT 31 U/L (21-72); AST/SGOT 24 U/L (17-59); BLOOD UREA NITROGEN 13 mg/dl (9-20); CALCIUM 8.9 mg/dL (8.4-10.2); GFR AFRICAN-AMERICAN > 60; GFR NON-AFRICAN AMERICAN > 60; HDL CHOLESTEROL 32 MG/DL (30-70)
[2017-04-28 06:14] LABS: LDL CHOLESTEROL 161 mg/dL (0-129)
[2017-04-28 08:11] LABS: BLOOD UREA NITROGEN 12 mg/dl (9-20); CALCIUM 8.6 mg/dL (8.4-10.2); GFR AFRICAN-AMERICAN > 60; GFR NON-AFRICAN AMERICAN > 60
--- NOTE | 2017-04-28 09:18 | CON ---
DATE: ENDOCRINOLOGY CONSULTATION LOCATION: ICU, room 430. HISTORY OF PRESENT ILLNESS: This is a 26-year-old male with known history of type 1 insulin-dependent diabetes, presenting here with generalized body weakness and worsening polyuria and nocturia and polydipsia and evaluated to be in severe diabetic ketoacidosis and started on the insulin drip 2 days ago and apparently tonight, has reverted back to diabetic ketoacidosis and is being referred now for diabetic evaluation and management. PAST MEDICAL HISTORY: As mentioned above. History of type 1 insulin-dependent diabetes since age 15 and currently using a [employer] MiniMed insulin pump to the present time. His basal doses have been reviewed in detail and his apparent prior A1c last year was 7.1 percent. No A1c has been done with this admission. History of generalized anxiety and depression, currently using psychotropic medications with Celexa and Wellbutrin as noted. Surprisingly, also the patient is using Invokamet at 150/1000 mg b.i.d. as given by his primary physician, Dr. Lloyd and this is quite surprise if the patient is a type 1 diabetic and there really is no role for this kind of oral hypoglycemic therapy at this time, especially if he is on insulin pump therapy. Also history of bronchial asthma, on bronchodilator nebulizer therapy. FAMILY HISTORY: His father has type 1 diabetes. SOCIAL HISTORY: Patient has a supportive family. No known substance use. 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 REVIEW OF SYSTEMS: Admits to generalized body weakness with sudden onset of worsening dizziness and lightheadedness over the past day or so prior to admission. Also admits to easy fatigability and tiredness with suboptimal energy level. No chest pains or palpitations or PND. His oral intake has been variable with nausea, dyspepsia and episodic vomiting episodes, worse on the day of admission. Admits to recent dietary indiscretion in the last week or so prior to admission. Also admits to progressively worsening polyuria, nocturia, polydipsia until the time of admission. PHYSICAL EXAMINATION: GENERAL: He is an average-built male in no apparent distress. VITAL SIGNS: Blood pressure of 140/80; pulse of 100 beats per minute, regular; temperature 99; respirations 20; height is 5 feet 10 inches; weight is 205 pounds. HEENT: Head normocephalic. Eyes anicteric with pink conjunctivae. Funduscopy not possible at this time. Ears, nose and throat, otherwise, normal. NECK: Supple. Thyroid gland is normal in size. No carotid bruits or any cervical adenopathy. CARDIOPULMONARY: Some adynamic precordium. S1 and S2 is rapid and regular. LUNGS: Clear to auscultation. ABDOMEN: Flat, soft with positive bowel sounds. EXTREMITIES: No peripheral edema. Pulses are +2 bilaterally. LABORATORY DATA: Latest chemistry tonight showed a BUN of 15, sodium 132, potassium 4.6, chloride 98, CO2 is 11, glucose is 457 and creatinine is 0.9. His glucose leading up to tonight ranged from 236 to 340 and 402 mg/dL. His latest chem, his initial CO2 this morning was 17 and initially on admission 2 days ago, the CO2 was less than 5. ASSESSMENT: This is a 26-year-old male with uncontrolled and decompensated type 1 insulin-dependent diabetes, presenting here with severe diabetic ketoacidosis and dehydration and started on an insulin drip infusion with intravenous hydration, apparently with persistent volume depletion and inadequate replacement of fluids with supervening metabolic decompensation back to diabetic ketoacidosis tonight as noted. PLAN OF MANAGEMENT: We will restart him back tonight with an insulin drip infusion and using algorithm 1 with DKA protocol as ordered. Moreover, we will change his IV to normal saline running at 200 mL per hour to start tonight and we will obtain serial chemistries and supplement accordingly as needed. As far the pharmacy is taking its time in giving the insulin drip preparation, we will give him a stat dose of Humalog given as 20 units subcu now with Levemir at 30 units subcu as bolus doses tonight, pending the resumption of the insulin drip infusion as ordered. We will initiate diabetic education and dietary instructions also at the time of this admission and we will contact our local [facility] representative, i.e., Ms. Grace Bautista, to recheck his insulin pump before we can resume the use of the insulin pump prior to this hospital discharge. We will also titrate his basal insulin doses as given and encouraged the patient to follow up with his jack spooler tender in [place] regarding the aforementioned insulin dose adjustments as indicated. We will obtain serial chemistries and supplement accordingly as needed. We will also obtain a hemoglobin A1c, which was not really obtained on admission to determine his prior glycemic control and baseline lipid panel and TSH levels will also be obtained. We will continue the vigorous IV hydration over the next 48 hours to fully replenish his lost fluids and electrolytes from the increased osmotic diuresis thereof. We will follow and advise accordingly. Lucila Webb MD
[2017-04-28] MEDS: Insulin Lispro (humaLOG) 100 Units/ml Inj SC SCH ×4 (13:45→22:00)
--- NOTE | 2017-04-28 14:08 | CP.PCM.PN ---
Subjective - Date & Time of Evaluation Date of Evaluation: 04/28/17 Time of Evaluation: 10:25 - Subjective Subjective: Patient seen and examined at bedside with attending- Dr. Lloyd. Alert, awake, tolerating PO diet. Patient reports he notice his insulin pump was displaying abnormal glucose levels and he also feels it might be malfunctioning. Patient on insulin drip, discussed with patient to not to use his insulin pump until it is evaluated. Denies weakness, dizziness, SOB, nausea or vomiting. Objective - Vital Signs/Intake and Output Vital Signs (last 24 hours): Temp Pulse Resp BP Pulse Ox 98.2 F 94 H 16 123/61 98 04/28/17 12:00 04/28/17 12:00 04/28/17 12:00 04/28/17 12:00 04/28/17 12:00 Intake and Output: 04/28/17 04/28/17 06:59 18:59 Intake Total 1819.3 Balance 1819.3 - Medications Medications: Current Medications Acetaminophen (Tylenol 325mg Tab) 650 mg PO Q6 PRN PRN Reason: Other Last Admin: 04/25/17 21:21 Dose: 650 mg Dextrose (Dextrose 50% Inj) 0 ml IV STAT PRN; Protocol PRN Reason: Hypoglycemia Protocol Dextrose (Glutose 15) 0 gm PO ONCE PRN; Protocol PRN Reason: Hypoglycemia Protocol Glucagon (Glucagen Diagnostic Kit) 0 mg IM STAT PRN; Protocol PRN Reason: Hypoglycemia Protocol Dextrose/Sodium Chloride (Dextrose 5%/0.9% Ns 1000 Ml) 1,000 mls @ 200 mls/hr IV .Q5H AVELINA Stop: 04/29/17 03:49 Last Admin: 04/28/17 04:07 Dose: 200 mls/hr Insulin Detemir (Levemir) 30 units SC HS AVELINA Insulin Human Lispro (Humalog) 14 units SC ACTID AVELINA Insulin Human Regular (Humulin R) 0 units SC ACHS AVELINA PRN Reason: Protocol Ondansetron HCl (Zofran Inj) 4 mg IVP Q4 PRN PRN Reason: Nausea/Vomiting Last Admin: 04/27/17 22:55 Dose: 4 mg Tramadol HCl (Ultram) 50 mg PO Q6 PRN PRN Reason: Pain, severe (8-10) - Labs Labs: 04/28/17 04:20 04/28/17 07:56 - Constitutional Appears: No Acute Distress - Head Exam Head Exam: ATRAUMATIC, NORMOCEPHALIC - Eye Exam Eye Exam: EOMI Pupil Exam: PERRL - ENT Exam ENT Exam: Mucous Membranes Moist - Neck Exam Neck Exam: Full ROM - Respiratory Exam Respiratory Exam: Clear to Ausculation Bilateral, NORMAL BREATHING PATTERN - Cardiovascular Exam Cardiovascular Exam: REGULAR RHYTHM, +S1, +S2 - GI/Abdominal Exam GI & Abdominal Exam: Soft, Normal Bowel Sounds. absent: Tenderness - Extremities Exam Extremities Exam: Full ROM. absent: Pedal Edema - Neurological Exam Neurological Exam: Alert, Awake, CN II-XII Intact, Oriented x3 - Psychiatric Exam Psychiatric exam: Normal Affect, Normal Mood - Skin Skin Exam: Dry, Warm Assessment and Plan - Assessment and Plan (Free Text) Assessment: 26 yr old M admitted for DKA. Anion gap worsened yesterday after discontinuing insulin drip and attempting glycemic control with patient's own insulin pump per his request. Over night patient was placed back on insulin drip and IVF, anion gap again improving. -discontinue insulin drip, continue D5 IVF -humalog 14 units SC AC TID; Levemir 30 units SC QHS, humulin R SC ACHS per low dose protocol -endocrinology on consult; will follow recommendations -Potassium supplemented PRN, zofran PRN -f/u BMP next AM -2L supplemental O2 via nasal cannula to keep SpO2 >92% -moderate carbohydrate diet -hypoglycemia protocol
[2017-04-28] MEDS: Sodium Chloride 0.9% 1,000 ML IV SCH ×2 (15:15→20:45)
[2017-04-28] MEDS ORDERED: Insulin Lispro (humaLOG) 100 Units/ml Inj SC SCH (16:30)
--- NOTE | 2017-04-28 17:54 | CP.CCUPN ---
CCU Subjective - Physician Review Subjective (Free Text): Awake and alert, oriented x 3, no distress, excellent appetite , started on Humalog and Levemir as per [employer] Assistant. He denies any new complaints. Other vitals and I/O's reviewed. No fever spikes. ROS: No other pertinent negs or positives on 10+ system review. PMSFH: All other Nursing and physician documentation reviewed to date; no new pertinent info noted relevant to current medical problems. IMPRESSION / MAJOR PROBLEMS NOW: 1. DKA 2. Hypokalemia PLAN: 1. Still out of DKA yet according to today's lytes. Ongoing fluids and insulin therapy as per [employer] Assistant. 2. Improved K levels. 3. Lactate levels resolved, elevation typical for DKA and not necessarily indicative of occult infection as an inciting event for the development of DKA. 4. Stable for transfer to regular med/surg bed for further mgmt. CCU Objective - Vital Signs / Intake & Output Vital Signs (Last 4 hours): Vital Signs Temp Pulse BP Pulse Ox 04/28/17 16:00 98.9 F 78 138/80 99 Intake and Output (Last 8hrs): Intake & Output 04/28/17 04/28/17 04/28/17 06:59 14:59 22:59 Intake Total 1219.3 16.2 3 Balance 1219.3 16.2 3 Weight 204 lb 12.8 oz Intake: IV 1219.3 16.2 3 Other: # Voids Urine, Voided 1 - Physical Exam Head: Positive for: Atraumatic, Normocephalic Pupils: Positive for: PERRL Extroacular Muscles: Positive for: EOMI Conjunctiva: Positive for: Normal Ears: Positive for: Normal Mouth: Positive for: Moist Mucous Membranes Nose (Internal): Positive for: Normal Inspection Neck: Positive for: Normal Range of Motion. Negative for: Meningeal Signs, JVD Respiratory/Chest: Positive for: Clear to Auscultation Cardiovascular: Positive for: Regular Rate and Rhythm. Negative for: Murmurs, Rub Abdomen: Positive for: Normal Bowel Sounds, Mass/Organomegaly. Negative for: Tenderness, Distention Upper Extremity: Positive for: Normal Inspection, NORMAL PULSES, Capillary Refill < 2s. Negative for: Cyanosis, Edema Lower Extremity: Positive for: Normal Inspection, NORMAL PULSES, Capillary Refill < 2 s. Negative for: Edema, CALF TENDERNESS Neurological: Positive for: GCS=15, CN II-XII Intact, Speech Normal, Motor Func Grossly Intact, Normal Sensory Function Psychiatric: Positive for: Alert, Oriented x 3, Normal Insight, Normal Concentration - Medications Active Medications: Active Medications Generic Name Dose Route Start Last Admin Trade Name Freq PRN Reason Stop Dose Admin Acetaminophen 650 mg 04/25/17 20:15 04/25/17 21:21 Tylenol 325mg Tab PO 650 mg Q6 PRN Administration Other Dextrose 0 ml 04/27/17 21:36 Dextrose 50% Inj IV STAT PRN Hypoglycemia Protocol Protocol Dextrose 0 gm 04/27/17 21:36 Glutose 15 PO ONCE PRN Hypoglycemia Protocol Protocol Glucagon 0 mg 04/27/17 21:36 Glucagen Diagnostic Kit IM STAT PRN Hypoglycemia Protocol Protocol Sodium Chloride 1,000 mls @ 200 mls/hr 04/28/17 15:15 Sodium Chloride 0.9% IV 04/29/17 15:09 .Q5H AVELINA Insulin Detemir 30 units 04/28/17 22:00 Levemir SC HS AVELINA Insulin Human Lispro 14 units 04/28/17 13:42 04/28/17 13:45 Humalog SC Not Given ACTID AVELINA Insulin Human Lispro 0 units 04/28/17 16:30 04/28/17 16:56 Humalog SC Not Given ACHS AVELINA Protocol Ondansetron HCl 4 mg 04/25/17 19:09 04/27/17 22:55 Zofran Inj IVP 4 mg Q4 PRN Administration Nausea/Vomiting Tramadol HCl 50 mg 04/25/17 20:17 Ultram PO Q6 PRN Pain, severe (8-10) - Patient Studies Lab Studies: Microbiology Studies 04/25/17 16:00 Blood Culture - Preliminary Blood-Venous NO GROWTH AFTER 3 DAYS 04/25/17 15:26 Blood Culture - Preliminary Blood-Venous NO GROWTH AFTER 3 DAYS 04/25/17 09:00 MRSA Culture (Admit) - Final Naris MRSA NOT DETECTED Lab Studies 04/28/17 04/28/17 04/28/17 Range/Units 11:02 10:04 09:06 WBC (4.8-10.8) K/uL RBC (4.40-5.90) Mil/uL Hgb (12.0-18.0) g/dL Hct (35.0-51.0) % MCV (80.0-94.0) fl MCH (27.0-31.0) pg MCHC (33.0-37.0) g/dL RDW (11.5-14.5) % Plt Count (130-400) K/uL MPV (7.2-11.7) fl Neut % (Auto) (50.0-75.0) % Lymph % (Auto) (20.0-40.0) % Wagoner % (Auto) (0.0-10.0) % Eos % (Auto) (0.0-4.0) % Baso % (Auto) (0.0-2.0) % Neut # (1.8-7.0) K/uL Lymph # (1.0-4.3) K/uL Wagoner # (0.0-0.8) K/uL Eos # (0.0-0.7) K/uL Baso # (0.0-0.2) K/uL Sodium (132-148) mmol/l Potassium (3.6-5.0) MMOL/L Chloride (98-107) mmol/L Carbon Dioxide (22-30) mmol/L Anion Gap (10-20) BUN (9-20) mg/dl Creatinine (0.8-1.5) mg/dl Est GFR ( Amer) Est GFR (Non-Af Amer) POC Glucose (mg/dL) 235 H 224 H 251 H (65-110) mg/dL Random Glucose (75-110) mg/dL Hemoglobin A1c (4.2-6.5) % Calcium (8.4-10.2) mg/dL Total Bilirubin (0.2-1.3) mg/dl AST (17-59) U/L ALT (21-72) U/L Alkaline Phosphatase (38-126) U/L Total Protein (6.3-8.2) G/DL Albumin (3.5-5.0) g/dL Globulin (2.2-3.9) gm/dL Albumin/Globulin Ratio (1.0-2.1) Triglycerides (0-149) mg/DL Cholesterol (0-199) mg/dL LDL Cholesterol Direct (0-129) mg/dL HDL Cholesterol (30-70) MG/DL TSH 3rd Generation (0.46-4.68) mIU/ML Cortisol AM Sample (4.46-22.7) ug/dL 04/28/17 04/28/17 04/28/17 Range/Units 08:01 07:56 06:49 WBC (4.8-10.8) K/uL RBC (4.40-5.90) Mil/uL Hgb (12.0-18.0) g/dL Hct (35.0-51.0) % MCV (80.0-94.0) fl MCH (27.0-31.0) pg MCHC (33.0-37.0) g/dL RDW (11.5-14.5) % Plt Count (130-400) K/uL MPV (7.2-11.7) fl Neut % (Auto) (50.0-75.0) % Lymph % (Auto) (20.0-40.0) % Wagoner % (Auto) (0.0-10.0) % Eos % (Auto) (0.0-4.0) % Baso % (Auto) (0.0-2.0) % Neut # (1.8-7.0) K/uL Lymph # (1.0-4.3) K/uL Wagoner # (0.0-0.8) K/uL Eos # (0.0-0.7) K/uL Baso # (0.0-0.2) K/uL Sodium 137 (132-148) mmol/l Potassium 4.1 (3.6-5.0) MMOL/L Chloride 105 (98-107) mmol/L Carbon Dioxide 17 L (22-30) mmol/L Anion Gap 19 (10-20) BUN 12 (9-20) mg/dl Creatinine 0.8 (0.8-1.5) mg/dl Est GFR ( Amer) > 60 Est GFR (Non-Af Amer) > 60 POC Glucose (mg/dL) 197 H 189 H (65-110) mg/dL Random Glucose 223 H (75-110) mg/dL Hemoglobin A1c (4.2-6.5) % Calcium 8.6 (8.4-10.2) mg/dL Total Bilirubin (0.2-1.3) mg/dl AST (17-59) U/L ALT (21-72) U/L Alkaline Phosphatase (38-126) U/L Total Protein (6.3-8.2) G/DL Albumin (3.5-5.0) g/dL Globulin (2.2-3.9) gm/dL Albumin/Globulin Ratio (1.0-2.1) Triglycerides (0-149) mg/DL Cholesterol (0-199) mg/dL LDL Cholesterol Direct (0-129) mg/dL HDL Cholesterol (30-70) MG/DL TSH 3rd Generation (0.46-4.68) mIU/ML Cortisol AM Sample (4.46-22.7) ug/dL 04/28/17 04/28/17 04/28/17 Range/Units 05:54 04:20 04:20 WBC (4.8-10.8) K/uL RBC (4.40-5.90) Mil/uL Hgb (12.0-18.0) g/dL Hct (35.0-51.0) % MCV (80.0-94.0) fl MCH (27.0-31.0) pg MCHC (33.0-37.0) g/dL RDW (11.5-14.5) % Plt Count (130-400) K/uL MPV (7.2-11.7) fl Neut % (Auto) (50.0-75.0) % Lymph % (Auto) (20.0-40.0) % Wagoner % (Auto) (0.0-10.0) % Eos % (Auto) (0.0-4.0) % Baso % (Auto) (0.0-2.0) % Neut # (1.8-7.0) K/uL Lymph # (1.0-4.3) K/uL Wagoner # (0.0-0.8) K/uL Eos # (0.0-0.7) K/uL Baso # (0.0-0.2) K/uL Sodium (132-148) mmol/l Potassium (3.6-5.0) MMOL/L Chloride (98-107) mmol/L Carbon Dioxide (22-30) mmol/L Anion Gap (10-20) BUN (9-20) mg/dl Creatinine (0.8-1.5) mg/dl Est GFR ( Amer) Est GFR (Non-Af Amer) POC Glucose (mg/dL) 173 H (65-110) mg/dL Random Glucose (75-110) mg/dL Hemoglobin A1c 7.3 H (4.2-6.5) % Calcium (8.4-10.2) mg/dL Total Bilirubin (0.2-1.3) mg/dl AST (17-59) U/L ALT (21-72) U/L Alkaline Phosphatase (38-126) U/L Total Protein (6.3-8.2) G/DL Albumin (3.5-5.0) g/dL Globulin (2.2-3.9) gm/dL Albumin/Globulin Ratio (1.0-2.1) Triglycerides (0-149) mg/DL Cholesterol (0-199) mg/dL LDL Cholesterol Direct (0-129) mg/dL HDL Cholesterol (30-70) MG/DL TSH 3rd Generation (0.46-4.68) mIU/ML Cortisol AM Sample 3.4 L (4.46-22.7) ug/dL 04/28/17 04/28/17 04/28/17 Range/Units 04:20 04:20 04:16 WBC 12.4 H D (4.8-10.8) K/uL RBC 5.37 (4.40-5.90) Mil/uL Hgb 15.8 (12.0-18.0) g/dL Hct 46.5 (35.0-51.0) % MCV 86.6 D (80.0-94.0) fl MCH 29.4 (27.0-31.0) pg MCHC 34.0 (33.0-37.0) g/dL RDW 13.0 (11.5-14.5) % Plt Count 263 (130-400) K/uL MPV 8.7 (7.2-11.7) fl Neut % (Auto) 70.2 (50.0-75.0) % Lymph % (Auto) 18.1 L (20.0-40.0) % Wagoner % (Auto) 10.5 H (0.0-10.0) % Eos % (Auto) 0.9 (0.0-4.0) % Baso % (Auto) 0.3 (0.0-2.0) % Neut # 8.7 H (1.8-7.0) K/uL Lymph # 2.2 (1.0-4.3) K/uL Wagoner # 1.3 H (0.0-0.8) K/uL Eos # 0.1 (0.0-0.7) K/uL Baso # 0.0 (0.0-0.2) K/uL Sodium 137 (132-148) mmol/l Potassium 4.0 (3.6-5.0) MMOL/L Chloride 105 (98-107) mmol/L Carbon Dioxide 15 L (22-30) mmol/L Anion Gap 21 H (10-20) BUN 13 (9-20) mg/dl Creatinine 0.8 (0.8-1.5) mg/dl Est GFR ( Amer) > 60 Est GFR (Non-Af Amer) > 60 POC Glucose (mg/dL) 121 H (65-110) mg/dL Random Glucose 141 H (75-110) mg/dL Hemoglobin A1c (4.2-6.5) % Calcium 8.9 (8.4-10.2) mg/dL Total Bilirubin 1.3 (0.2-1.3) mg/dl AST 24 (17-59) U/L ALT 31 (21-72) U/L Alkaline Phosphatase 123 (38-126) U/L Total Protein 7.4 (6.3-8.2) G/DL Albumin 4.2 (3.5-5.0) g/dL Globulin 3.3 (2.2-3.9) gm/dL Albumin/Globulin Ratio 1.3 (1.0-2.1) Triglycerides 138 (0-149) mg/DL Cholesterol 221 H (0-199) mg/dL LDL Cholesterol Direct 161 H (0-129) mg/dL HDL Cholesterol 32 (30-70) MG/DL TSH 3rd Generation 2.06 (0.46-4.68) mIU/ML Cortisol AM Sample (4.46-22.7) ug/dL 04/28/17 04/28/17 04/28/17 Range/Units 02:53 01:57 01:30 WBC (4.8-10.8) K/uL RBC (4.40-5.90) Mil/uL Hgb (12.0-18.0) g/dL Hct (35.0-51.0) % MCV (80.0-94.0) fl MCH (27.0-31.0) pg MCHC (33.0-37.0) g/dL RDW (11.5-14.5) % Plt Count (130-400) K/uL MPV (7.2-11.7) fl Neut % (Auto) (50.0-75.0) % Lymph % (Auto) (20.0-40.0) % Wagoner % (Auto) (0.0-10.0) % Eos % (Auto) (0.0-4.0) % Baso % (Auto) (0.0-2.0) % Neut # (1.8-7.0) K/uL Lymph # (1.0-4.3) K/uL Wagoner # (0.0-0.8) K/uL Eos # (0.0-0.7) K/uL Baso # (0.0-0.2) K/uL Sodium 137 (132-148) mmol/l Potassium 3.9 (3.6-5.0) MMOL/L Chloride 103 (98-107) mmol/L Carbon Dioxide 11 L* (22-30) mmol/L Anion Gap 27 H (10-20) BUN 15 (9-20) mg/dl Creatinine 0.9 (0.8-1.5) mg/dl Est GFR ( Amer) > 60 Est GFR (Non-Af Amer) > 60 POC Glucose (mg/dL) 141 H 162 H (65-110) mg/dL Random Glucose 219 H (75-110) mg/dL Hemoglobin A1c (4.2-6.5) % Calcium 8.9 (8.4-10.2) mg/dL Total Bilirubin (0.2-1.3) mg/dl AST (17-59) U/L ALT (21-72) U/L Alkaline Phosphatase (38-126) U/L Total Protein (6.3-8.2) G/DL Albumin (3.5-5.0) g/dL Globulin (2.2-3.9) gm/dL Albumin/Globulin Ratio (1.0-2.1) Triglycerides (0-149) mg/DL Cholesterol (0-199) mg/dL LDL Cholesterol Direct (0-129) mg/dL HDL Cholesterol (30-70) MG/DL TSH 3rd Generation (0.46-4.68) mIU/ML Cortisol AM Sample (4.46-22.7) ug/dL 04/28/17 04/27/17 04/27/17 Range/Units 00:59 23:51 22:29 WBC (4.8-10.8) K/uL RBC (4.40-5.90) Mil/uL Hgb (12.0-18.0) g/dL Hct (35.0-51.0) % MCV (80.0-94.0) fl MCH (27.0-31.0) pg MCHC (33.0-37.0) g/dL RDW (11.5-14.5) % Plt Count (130-400) K/uL MPV (7.2-11.7) fl Neut % (Auto) (50.0-75.0) % Lymph % (Auto) (20.0-40.0) % Wagoner % (Auto) (0.0-10.0) % Eos % (Auto) (0.0-4.0) % Baso % (Auto) (0.0-2.0) % Neut # (1.8-7.0) K/uL Lymph # (1.0-4.3) K/uL Wagoner # (0.0-0.8) K/uL Eos # (0.0-0.7) K/uL Baso # (0.0-0.2) K/uL Sodium (132-148) mmol/l Potassium (3.6-5.0) MMOL/L Chloride (98-107) mmol/L Carbon Dioxide (22-30) mmol/L Anion Gap (10-20) BUN (9-20) mg/dl Creatinine (0.8-1.5) mg/dl Est GFR ( Amer) Est GFR (Non-Af Amer) POC Glucose (mg/dL) 233 H 240 H 334 H (65-110) mg/dL Random Glucose (75-110) mg/dL Hemoglobin A1c (4.2-6.5) % Calcium (8.4-10.2) mg/dL Total Bilirubin (0.2-1.3) mg/dl AST (17-59) U/L ALT (21-72) U/L Alkaline Phosphatase (38-126) U/L Total Protein (6.3-8.2) G/DL Albumin (3.5-5.0) g/dL Globulin (2.2-3.9) gm/dL Albumin/Globulin Ratio (1.0-2.1) Triglycerides (0-149) mg/DL Cholesterol (0-199) mg/dL LDL Cholesterol Direct (0-129) mg/dL HDL Cholesterol (30-70) MG/DL TSH 3rd Generation (0.46-4.68) mIU/ML Cortisol AM Sample (4.46-22.7) ug/dL 04/27/17 04/27/17 04/27/17 Range/Units 21:29 20:36 20:27 WBC (4.8-10.8) K/uL RBC (4.40-5.90) Mil/uL Hgb (12.0-18.0) g/dL Hct (35.0-51.0) % MCV (80.0-94.0) fl MCH (27.0-31.0) pg MCHC (33.0-37.0) g/dL RDW (11.5-14.5) % Plt Count (130-400) K/uL MPV (7.2-11.7) fl Neut % (Auto) (50.0-75.0) % Lymph % (Auto) (20.0-40.0) % Wagoner % (Auto) (0.0-10.0) % Eos % (Auto) (0.0-4.0) % Baso % (Auto) (0.0-2.0) % Neut # (1.8-7.0) K/uL Lymph # (1.0-4.3) K/uL Wagoner # (0.0-0.8) K/uL Eos # (0.0-0.7) K/uL Baso # (0.0-0.2) K/uL Sodium 132 (132-148) mmol/l Potassium 4.6 (3.6-5.0) MMOL/L Chloride 98 (98-107) mmol/L Carbon Dioxide 11 L* D (22-30) mmol/L Anion Gap 28 H (10-20) BUN 15 (9-20) mg/dl Creatinine 0.9 (0.8-1.5) mg/dl Est GFR ( Amer) > 60 Est GFR (Non-Af Amer) > 60 POC Glucose (mg/dL) 352 H 402 H* (65-110) mg/dL Random Glucose 457 H* D (75-110) mg/dL Hemoglobin A1c (4.2-6.5) % Calcium 9.3 (8.4-10.2) mg/dL Total Bilirubin (0.2-1.3) mg/dl AST (17-59) U/L ALT (21-72) U/L Alkaline Phosphatase (38-126) U/L Total Protein (6.3-8.2) G/DL Albumin (3.5-5.0) g/dL Globulin (2.2-3.9) gm/dL Albumin/Globulin Ratio (1.0-2.1) Triglycerides (0-149) mg/DL Cholesterol (0-199) mg/dL LDL Cholesterol Direct (0-129) mg/dL HDL Cholesterol (30-70) MG/DL TSH 3rd Generation (0.46-4.68) mIU/ML Cortisol AM Sample (4.46-22.7) ug/dL 04/27/17 Range/Units 17:01 WBC (4.8-10.8) K/uL RBC (4.40-5.90) Mil/uL Hgb (12.0-18.0) g/dL Hct (35.0-51.0) % MCV (80.0-94.0) fl MCH (27.0-31.0) pg MCHC (33.0-37.0) g/dL RDW (11.5-14.5) % Plt Count (130-400) K/uL MPV (7.2-11.7) fl Neut % (Auto) (50.0-75.0) % Lymph % (Auto) (20.0-40.0) % Wagoner % (Auto) (0.0-10.0) % Eos % (Auto) (0.0-4.0) % Baso % (Auto) (0.0-2.0) % Neut # (1.8-7.0) K/uL Lymph # (1.0-4.3) K/uL Wagoner # (0.0-0.8) K/uL Eos # (0.0-0.7) K/uL Baso # (0.0-0.2) K/uL Sodium (132-148) mmol/l Potassium (3.6-5.0) MMOL/L Chloride (98-107) mmol/L Carbon Dioxide (22-30) mmol/L Anion Gap (10-20) BUN (9-20) mg/dl Creatinine (0.8-1.5) mg/dl Est GFR ( Amer) Est GFR (Non-Af Amer) POC Glucose (mg/dL) 340 H (65-110) mg/dL Random Glucose (75-110) mg/dL Hemoglobin A1c (4.2-6.5) % Calcium (8.4-10.2) mg/dL Total Bilirubin (0.2-1.3) mg/dl AST (17-59) U/L ALT (21-72) U/L Alkaline Phosphatase (38-126) U/L Total Protein (6.3-8.2) G/DL Albumin (3.5-5.0) g/dL Globulin (2.2-3.9) gm/dL Albumin/Globulin Ratio (1.0-2.1) Triglycerides (0-149) mg/DL Cholesterol (0-199) mg/dL LDL Cholesterol Direct (0-129) mg/dL HDL Cholesterol (30-70) MG/DL TSH 3rd Generation (0.46-4.68) mIU/ML Cortisol AM Sample (4.46-22.7) ug/dL Laboratory Results - last 24 hr 04/27/17 04/27/17 04/27/17 17:01 20:27 20:36 WBC RBC Hgb Hct MCV MCH MCHC RDW Plt Count MPV Neut % (Auto) Lymph % (Auto) Wagoner % (Auto) Eos % (Auto) Baso % (Auto) Neut # Lymph # Wagoner # Eos # Baso # Sodium 132 Potassium 4.6 Chloride 98 Carbon Dioxide 11 L* D Anion Gap 28 H BUN 15 Creatinine 0.9 Est GFR ( Amer) > 60 Est GFR (Non-Af Amer) > 60 POC Glucose (mg/dL) 340 H 402 H* Random Glucose 457 H* D Hemoglobin A1c Calcium 9.3 Total Bilirubin AST ALT Alkaline Phosphatase Total Protein Albumin Globulin Albumin/Globulin Ratio Triglycerides Cholesterol LDL Cholesterol Direct HDL Cholesterol TSH 3rd Generation Cortisol AM Sample 04/27/17 04/27/17 04/27/17 21:29 22:29 23:51 WBC RBC Hgb Hct MCV MCH MCHC RDW Plt Count MPV Neut % (Auto) Lymph % (Auto) Wagoner % (Auto) Eos % (Auto) Baso % (Auto) Neut # Lymph # Wagoner # Eos # Baso # Sodium Potassium Chloride Carbon Dioxide Anion Gap BUN Creatinine Est GFR ( Amer) Est GFR (Non-Af Amer) POC Glucose (mg/dL) 352 H 334 H 240 H Random Glucose Hemoglobin A1c Calcium Total Bilirubin AST ALT Alkaline Phosphatase Total Protein Albumin Globulin Albumin/Globulin Ratio Triglycerides Cholesterol LDL Cholesterol Direct HDL Cholesterol TSH 3rd Generation Cortisol AM Sample 04/28/17 04/28/17 04/28/17 00:59 01:30 01:57 WBC RBC Hgb Hct MCV MCH MCHC RDW Plt Count MPV Neut % (Auto) Lymph % (Auto) Wagoner % (Auto) Eos % (Auto) Baso % (Auto) Neut # Lymph # Wagoner # Eos # Baso # Sodium 137 Potassium 3.9 Chloride 103 Carbon Dioxide 11 L* Anion Gap 27 H BUN 15 Creatinine 0.9 Est GFR ( Amer) > 60 Est GFR (Non-Af Amer) > 60 POC Glucose (mg/dL) 233 H 162 H Random Glucose 219 H Hemoglobin A1c Calcium 8.9 Total Bilirubin AST ALT Alkaline Phosphatase Total Protein Albumin Globulin Albumin/Globulin Ratio Triglycerides Cholesterol LDL Cholesterol Direct HDL Cholesterol TSH 3rd Generation Cortisol AM Sample 04/28/17 04/28/17 04/28/17 02:53 04:16 04:20 WBC RBC Hgb Hct MCV MCH MCHC RDW Plt Count MPV Neut % (Auto) Lymph % (Auto) [place] % (Auto) Eos % (Auto) Baso % (Auto) Neut # Lymph # [place] # Eos # Baso # Sodium 137 Potassium 4.0 Chloride 105 Carbon Dioxide 15 L Anion Gap 21 H BUN 13 Creatinine 0.8 Est GFR ( Amer) > 60 Est GFR (Non-Af Amer) > 60 POC Glucose (mg/dL) 141 H 121 H Random Glucose 141 H Hemoglobin A1c Calcium 8.9 Total Bilirubin 1.3 AST 24 ALT 31 Alkaline Phosphatase 123 Total Protein 7.4 Albumin 4.2 Globulin 3.3 Albumin/Globulin Ratio 1.3 Triglycerides 138 Cholesterol 221 H LDL Cholesterol Direct 161 H HDL Cholesterol 32 TSH 3rd Generation 2.06 Cortisol AM Sample 04/28/17 04/28/17 04/28/17 04:20 04:20 04:20 WBC 12.4 H D RBC 5.37 Hgb 15.8 Hct 46.5 MCV 86.6 D MCH 29.4 MCHC 34.0 RDW 13.0 Plt Count 263 MPV 8.7 Neut % (Auto) 70.2 Lymph % (Auto) 18.1 L [place] % (Auto) 10.5 H Eos % (Auto) 0.9 Baso % (Auto) 0.3 Neut # 8.7 H Lymph # 2.2 [place] # 1.3 H Eos # 0.1 Baso # 0.0 Sodium Potassium Chloride Carbon Dioxide Anion Gap BUN Creatinine Est GFR ( Amer) Est GFR (Non-Af Amer) POC Glucose (mg/dL) Random Glucose Hemoglobin A1c 7.3 H Calcium Total Bilirubin AST ALT Alkaline Phosphatase Total Protein Albumin Globulin Albumin/Globulin Ratio Triglycerides Cholesterol LDL Cholesterol Direct HDL Cholesterol TSH 3rd Generation Cortisol AM Sample 3.4 L 04/28/17 04/28/17 04/28/17 05:54 06:49 07:56 WBC RBC Hgb Hct MCV MCH MCHC RDW Plt Count MPV Neut % (Auto) Lymph % (Auto) [place] % (Auto) Eos % (Auto) Baso % (Auto) Neut # Lymph # [place] # Eos # Baso # Sodium 137 Potassium 4.1 Chloride 105 Carbon Dioxide 17 L Anion Gap 19 BUN 12 Creatinine 0.8 Est GFR ( Amer) > 60 Est GFR (Non-Af Amer) > 60 POC Glucose (mg/dL) 173 H 189 H Random Glucose 223 H Hemoglobin A1c Calcium 8.6 Total Bilirubin AST ALT Alkaline Phosphatase Total Protein Albumin Globulin Albumin/Globulin Ratio Triglycerides Cholesterol LDL Cholesterol Direct HDL Cholesterol TSH 3rd Generation Cortisol AM Sample 04/28/17 04/28/17 04/28/17 08:01 09:06 10:04 WBC RBC Hgb Hct MCV MCH MCHC RDW Plt Count MPV Neut % (Auto) Lymph % (Auto) [place] % (Auto) Eos % (Auto) Baso % (Auto) Neut # Lymph # [place] # Eos # Baso # Sodium Potassium Chloride Carbon Dioxide Anion Gap BUN Creatinine Est GFR ( Amer) Est GFR (Non-Af Amer) POC Glucose (mg/dL) 197 H 251 H 224 H Random Glucose Hemoglobin A1c Calcium Total Bilirubin AST ALT Alkaline Phosphatase Total Protein Albumin Globulin Albumin/Globulin Ratio Triglycerides Cholesterol LDL Cholesterol Direct HDL Cholesterol TSH 3rd Generation Cortisol AM Sample 04/28/17 11:02 WBC RBC Hgb Hct MCV MCH MCHC RDW Plt Count MPV Neut % (Auto) Lymph % (Auto) [place] % (Auto) Eos % (Auto) Baso % (Auto) Neut # Lymph # [place] # Eos # Baso # Sodium Potassium Chloride Carbon Dioxide Anion Gap BUN Creatinine Est GFR ( Amer) Est GFR (Non-Af Amer) POC Glucose (mg/dL) 235 H Random Glucose Hemoglobin A1c Calcium Total Bilirubin AST ALT Alkaline Phosphatase Total Protein Albumin Globulin Albumin/Globulin Ratio Triglycerides Cholesterol LDL Cholesterol Direct HDL Cholesterol TSH 3rd Generation Cortisol AM Sample Fingerstick Blood Sugar Results: 218 Review of Systems - Review of Systems All systems: reviewed and no additional remarkable complaints except (as above)
[2017-04-28] MEDS ORDERED: Insulin Detemir 100 Units/ml Inj SC SCH (22:00)
[2017-04-29] MEDS: Sodium Chloride 0.9% 1,000 ML IV SCH ×3 (01:25→11:33)
--- NOTE | 2017-04-29 02:43 | PN ---
ENDOCRINOLOGY FOLLOWUP NOTE DATE: LOCATION: ICU, room 430 SUBJECTIVE: This is a 26-year-old male with recent uncontrolled type-1 insulin-dependent diabetes, presenting here with diabetic ketoacidosis and dehydration, and is now being followed closely for metabolic management. He somehow had a protracted course of over 48 hours in diabetic ketoacidosis, and once he was switched over to his insulin pump yesterday, he once again metabolically decompensated back to acidosis and was switched back to the insulin drip infusion and vigorous IV hydration as ordered and given. Today, his appetite is much improved at this time with subsidence of the nausea and dyspepsia as noted, and actually has partaken of the food brought in by his father from home. OBJECTIVE: His glycemic levels are fluctuating, but improved and have ranged from 224 to 235 and 251 mg/dL. It was 197 this morning before breakfast as noted. His latest chemistry showed BUN of 12, sodium 137, potassium 4.1, chloride 105, CO2 of 17, glucose 223, and creatinine 0.8. His hemoglobin A1c was reported as 7.3% today as noted, which is actually near-optimal in terms of his metabolic cause, especially for a type-1 diabetic; where we would like to really achieve A1c's below 7% especially as he is on an insulin pump as noted. The [employer] rep, Ms. Grace Bautista, came in today and reviewed with the patient the possibilities as to how he could have decompensated and developed DKA as noted. The possibility of problems with his infusion set was analyzed and the [employer] rep went over his insulin pump, and it was actually working perfectly and in good condition as noted. So, we are left with the possibility of the infusion set being inserted into a scarred tissue in his abdominal wall, and so she left two different kinds of infusion sets to give the patient an option to see which one he would prefer upon discharge from the hospital. The patient is also explained of the fact that there may also be a possible problem with his Contour Next glucose meter, as the values were very discorded with the current hospital or inpatient glucose values as noted overnight. For now, we will continue the vigorous IV hydration with normal saline at 200 mL per hour as ordered. We will also switch him over to a more physiological basal and bolus insulin regimen prior to his switching over to his insulin pump, which he could actually resume upon hospital discharge, possibly tomorrow morning. Would safely aim for a CO2 of at least over 20 by tomorrow before he can be cleared for discharge. I also called his managed care director in [facility], but he was not available, so I left a message with his nursing staff as noted. We will start him on Levemir given as 30 units subcu at bedtime daily to start tonight. We will add Humalog given as 14 units subcu t.i.d. before meals to start at dinner time today as ordered. We will modify the coverage scale to obviate hypoglycemia, and detailed orders have been given. We will obtain serial chemistries and supplement accordingly as needed. We will follow. Lucila Webb MD
[2017-04-29 06:39] LABS: BASO % 0.5 % (0.0-2.0); EOS # 0.2 K/uL (0.0-0.7); EOS % 2.8 % (0.0-4.0); LYMPH # 2.5 K/uL (1.0-4.3); MEAN CELL VOLUME 86.6 fl (80.0-94.0); MEAN CORPUSCULAR HEMOGLOBIN 29.4 pg (27.0-31.0); MEAN PLATELET VOLUME 7.6 fl (7.2-11.7); MONO # 0.8 K/uL (0.0-0.8); MONO % 9.1 % (0.0-10.0); NEUT % 58.6 % (50.0-75.0); NRBC % 0.1 % (0.0-0.0); RBC 4.77 Mil/uL (4.40-5.90); RED CELL DISTRIBUTION WIDTH 12.8 % (11.5-14.5); WHITE BLOOD COUNT 8.5 K/uL (4.8-10.8)
[2017-04-29 07:00] LABS: ALB/GLOB RATIO 1.2 (1.0-2.1); ALBUMIN 3.5 g/dL (3.5-5.0); ALT/SGPT 33 U/L (21-72); AST/SGOT 13 U/L (17-59); BLOOD UREA NITROGEN 10 mg/dl (9-20); CALCIUM 8.6 mg/dL (8.4-10.2); GFR AFRICAN-AMERICAN > 60; GFR NON-AFRICAN AMERICAN > 60
[2017-04-29] MEDS: Insulin Lispro (humaLOG) 100 Units/ml Inj SC SCH ×2 (07:42→11:31)
[2017-04-29 08:34] VITALS: BP 125/73; PULSE 72; RESP 20; TEMP 97.9
[2017-04-29] MEDS ORDERED: Potassium Chloride 20 mEq ER Tab PO SCH (09:00)
--- NOTE | 2017-04-29 14:17 | CP.PCM.DIS ---
Provider - Provider Date of Admission: 04/25/17 13:53 Attending physician: Srinath Lloyd MD Primary care physician: Piero Corado at [facility] Consults: Dr. Webb-process development associate Time Spent in preparation of Discharge (in minutes): 30 Diagnosis - Discharge Diagnosis (1) DKA (diabetic ketoacidoses) Status: Acute Priority: Low Hospital Course - Lab Results Lab Results: Micro Results 04/25/17 16:00 Blood-Venous Blood Culture - Preliminary NO GROWTH AFTER 3 DAYS 04/25/17 15:26 Blood-Venous Blood Culture - Preliminary NO GROWTH AFTER 3 DAYS 04/25/17 09:00 Naris MRSA Culture (Admit) - Final MRSA NOT DETECTED Most Recent Lab Values WBC 8.5 K/uL (4.8-10.8) 04/29/17 06:30 RBC 4.77 Mil/uL (4.40-5.90) 04/29/17 06:30 Hgb 14.0 g/dL (12.0-18.0) 04/29/17 06:30 Hct 41.3 % (35.0-51.0) 04/29/17 06:30 MCV 86.6 fl (80.0-94.0) 04/29/17 06:30 MCH 29.4 pg (27.0-31.0) 04/29/17 06:30 MCHC 34.0 g/dL (33.0-37.0) 04/29/17 06:30 RDW 12.8 % (11.5-14.5) 04/29/17 06:30 Plt Count 204 K/uL (130-400) 04/29/17 06:30 MPV 7.6 fl (7.2-11.7) 04/29/17 06:30 Neut % (Auto) 58.6 % (50.0-75.0) 04/29/17 06:30 Lymph % (Auto) 29.0 % (20.0-40.0) 04/29/17 06:30 [place] % (Auto) 9.1 % (0.0-10.0) 04/29/17 06:30 Eos % (Auto) 2.8 % (0.0-4.0) 04/29/17 06:30 Baso % (Auto) 0.5 % (0.0-2.0) 04/29/17 06:30 Neut # 5.0 K/uL (1.8-7.0) 04/29/17 06:30 Lymph # 2.5 K/uL (1.0-4.3) 04/29/17 06:30 [place] # 0.8 K/uL (0.0-0.8) 04/29/17 06:30 Eos # 0.2 K/uL (0.0-0.7) 04/29/17 06:30 Baso # 0.0 K/uL (0.0-0.2) 04/29/17 06:30 Neutrophils % (Manual) 91 % (42-75) H 04/25/17 13:10 Band Neutrophils % 1 % (0-2) 04/25/17 13:10 Lymphocytes % (Manual) 2 % (20-50) L 04/25/17 13:10 Monocytes % (Manual) 5 % (0-10) 04/25/17 13:10 Eosinophils % (Manual) 1 % (0-7) 04/25/17 13:10 Platelet Estimate Normal (NORMAL) 04/25/17 13:10 RBC Morphology Normal (NORMAL) 04/25/17 13:10 pO2 33 mm/Hg (30-55) 04/26/17 20:17 VBG pH 7.31 (7.32-7.43) L 04/26/17 20:17 VBG pCO2 31 mmHg (40-60) L 04/26/17 20:17 VBG HCO3 16.5 mmol/L 04/26/17 20:17 VBG Total CO2 11.7 mmol/L (22-28) L 04/26/17 13:12 VBG O2 Sat (Calc) 77.6 % (40-65) H 04/26/17 20:17 VBG Base Excess -9.4 mmol/L (0.0-2.0) L 04/26/17 20: VBG Potassium 4.5 mmol/L (3.6-5.2) 04/26/17 13:12 A-a O2 Difference 68.0 mm/Hg 04/25/17 13:22 Sodium 131.0 mmol/L (132-148) L 04/26/17 13:12 Chloride 100.0 mmol/L (98-107) 04/26/17 13:12 Glucose 243 mg/dL (75-110) H 04/26/17 13:12 Lactate 1.1 mmol/L (0.7-2.1) 04/26/17 13:12 FiO2 21.0 % 04/26/17 13:12 Blood Gas Comments 333 04/26/17 06:46 Crit Value Called To Clover yates rn 04/26/17 06:46 Crit Value Called By 15 04/25/17 13:22 Crit Value Read Back Y 04/26/17 06:46 Blood Gas Notified Time 650 04/26/17 06:46 Sodium 141 mmol/l (132-148) 04/29/17 06:30 Potassium 3.5 MMOL/L (3.6-5.0) L 04/29/17 06:30 Chloride 103 mmol/L (98-107) 04/29/17 06:30 Carbon Dioxide 24 mmol/L (22-30) 04/29/17 06:30 Anion Gap 18 (10-20) 04/29/17 06:30 BUN 10 mg/dl (9-20) 04/29/17 06:30 Creatinine 0.8 mg/dl (0.8-1.5) 04/29/17 06:30 Est GFR ( Amer) > 60 04/29/17 06:30 Est GFR (Non-Af Amer) > 60 04/29/17 06:30 POC Glucose (mg/dL) 172 mg/dL (65-110) H 04/29/17 11:29 Random Glucose 173 mg/dL (75-110) H 04/29/17 06:30 Hemoglobin A1c 7.3 % (4.2-6.5) H 04/28/17 04:20 Calcium 8.6 mg/dL (8.4-10.2) 04/29/17 06:30 Phosphorus 2.6 mg/dl (2.5-4.5) 04/29/17 06:30 Magnesium 2.0 MG/DL (1.6-2.3) 04/29/17 06:30 Total Bilirubin 1.3 mg/dl (0.2-1.3) 04/29/17 06:30 AST 13 U/L (17-59) L D 04/29/17 06:30 ALT 33 U/L (21-72) 04/29/17 06:30 Alkaline Phosphatase 89 U/L (38-126) 04/29/17 06:30 Troponin I 0.0180 ng/mL (0.00-0.120) 04/25/17 13:10 Total Protein 6.3 G/DL (6.3-8.2) 04/29/17 06:30 Albumin 3.5 g/dL (3.5-5.0) 04/29/17 06:30 Globulin 2.9 gm/dL (2.2-3.9) 04/29/17 06:30 Albumin/Globulin Ratio 1.2 (1.0-2.1) 04/29/17 06:30 Triglycerides 138 mg/DL (0-149) 04/28/17 04:20 Cholesterol 221 mg/dL (0-199) H 04/28/17 04:20 LDL Cholesterol Direct 161 mg/dL (0-129) H 04/28/17 04:20 HDL Cholesterol 32 MG/DL (30-70) 04/28/17 04:20 TSH 3rd Generation 2.06 mIU/ML (0.46-4.68) 04/28/17 04:20 Cortisol AM Sample 3.4 ug/dL (4.46-22.7) L 04/28/17 04:20 Venous Blood Potassium 4.5 mmol/L (3.6-5.2) 04/26/17 13:12 Urine Color Yellow (YELLOW) 04/25/17 13:15 Urine Clarity Clear (Clear) 04/25/17 13:15 Urine pH 5.0 (5.0-8.0) 04/25/17 13:15 Ur Specific Alexis 1.023 (1.003-1.030) 04/25/17 13:15 Urine Protein 100 mg/dL (NEGATIVE) 04/25/17 13:15 Urine Glucose (UA) >=500 mg/dL (Normal) 04/25/17 13:15 Urine Ketones 80 mg/dL (NEGATIVE) 04/25/17 13:15 Urine Blood Negative (NEGATIVE) 04/25/17 13:15 Urine Nitrate Negative (NEGATIVE) 04/25/17 13:15 Urine Bilirubin Negative (NEGATIVE) 04/25/17 13:15 Urine Urobilinogen 0.2-1.0 mg/dL (0.2-1.0) 04/25/17 13:15 Ur Leukocyte Esterase Neg Ray/uL (Negative) 04/25/17 13:15 Urine RBC (Auto) 3 /hpf (0-3) 04/25/17 13:15 Urine Microscopic WBC < 1 /hpf (0-5) 04/25/17 13:15 Ur Squamous Epith Cells < 1 /hpf (0-5) 04/25/17 13:15 Hyaline Casts 0-2 /hpf (0-2) 04/25/17 13:15 Urine Opiates Screen Negative (NEGATIVE) 04/26/17 02:20 Urine Methadone Screen Negative (NEGATIVE) 04/26/17 02:20 Ur Barbiturates Screen Negative (NEGATIVE) 04/26/17 02:20 Ur Phencyclidine Scrn Negative (NEGATIVE) 04/26/17 02:20 Ur Amphetamines Screen Negative (NEGATIVE) 04/26/17 02:20 U Benzodiazepines Scrn Negative (NEGATIVE) 04/26/17 02:20 U Oth Cocaine Metabols Negative (NEGATIVE) 04/26/17 02:20 U Cannabinoids Screen Negative (NEGATIVE) 04/26/17 02:20 Influenza Typ A,B (EIA) Negative for flu a/b (NEGATIVE) 04/25/17 15:29 - Hospital Course Hospital Course: 26 yr old M admitted for DKA. Patient improved s/p aggressive treatment including IV insulin drip, IV fluids, potassium supplementation. Patient labs today are within normal limits, patient is tolerating diet and ambulating without difficulty. Patient is medically stable for discharge with instructions to follow up with PMD and process development associate Dr. Maher as scheduled on tuesday. - Date & Time of H&P Date of H&P: 04/26/17 Time of H&P: 09:50 Discharge Exam - Head Exam Head Exam: ATRAUMATIC, NORMOCEPHALIC Discharge Plan - Follow Up Plan Condition: STABLE Disposition: HOME/ ROUTINE Instructions: Diabetic Ketoacidosis (GEN), Patient Safety in the Hospital (GEN) , How To Wash Your Hands (GEN), Fall Prevention (GEN), Diabetic Hyperglycemia ( GEN) Additional Instructions: -Follow up with PMD and process development associate-Dr. Maher as scheduled on tuesday -Check your blood sugar every 4 hrs and use insulin coverage scale -Adequate fluid intake, adequate food intake -Hypoglycemia precautions reviewed Referrals: Lucila Webb MD [Medical Doctor] - Srinath Lloyd MD [Staff Provider] - Clinical Quality Measures - Date & Time of Discharge Summary Date of Discharge Summary: 04/29/17 Time of Discharge Summary: 14:23
--- NOTE | 2017-04-29 23:32 | PN ---
DATE: ENDOCRINOLOGY FOLLOWUP NOTE LOCATION: ICU, room 430. SUBJECTIVE: This is a 26-year-old male with recent uncontrolled type 1 insulin-dependent diabetes, presenting here with diabetic ketoacidosis and dehydration and is now being followed closely for metabolic management. He actually had a protracted course and delayed response to the insulin drip infusion and IV hydration as given initially on admission and as he switched over to his insulin pump, he once again developed metabolic acidosis overnight and had to be switched back to the insulin drip infusion as given. He has since then also been receiving vigorous IV hydration with normal saline running at 200 mL/hour as ordered. His latest chemistries showed a BUN of 10, sodium 141, potassium 3.5, chloride 103, CO2 24, glucose 173 and creatinine 0.8. His glucose levels have ranged from 160 to 172 and 197 mg/dL. His hemoglobin A1c was reported as 7.3%. So at this time, we have switched him over to a more physiologic basal and bolus insulin drug combination with Levemir given as 30 units subcu at bedtime daily as ordered. We will also continue the Humalog given as 14 units subcu t.i.d. before meals as ordered. We will titrate incremental as indicated to optimize metabolic control. He has been advised to resume the use of his [employer] insulin pump only upon discharge at home as discussed lengthily at bedside with the patient and also with the [employer] rep, Ms. Grace Bautista, as noted. He will follow with his [facility] health policy nurse, Dr. Piero Maher, upon discharge for ongoing outpatient diabetic management.. He has also been advised to call the [employer] [facility] for any problems with his insulin pump or the infusion sets thereof. Lucila Webb MD
[2017-05-02 12:45] VITALS: O2SAT 95
== END 2017-04-29 01:30 | disposition home or self-care (01) | DRG 639 ==
LOC: H.ER 11:16 → H.ERHOLD 13:53 → H.ICU/CCU 17:09 → H.PEDS 04-28 18:00
PROVIDERS: ADMIT Family Medicine; ATTEND Family Medicine
PROC: 3E0234Z Introduction of Serum, Toxoid and Vaccine into Muscle, Percutaneous Approach (ICD-10-PCS; principal; 2017-04-26)
DX: E10.10 Type 1 diabetes mellitus with ketoacidosis without coma (principal); E86.0 Dehydration; E87.6 Hypokalemia; F41.1 Generalized anxiety disorder; D72.829 Elevated white blood cell count, unspecified; J45.909 Unspecified asthma, uncomplicated; Z96.41 Presence of insulin pump (external) (internal); Z23 Encounter for immunization; Z79.4 Long term (current) use of insulin